=== PATIENT | female | born 1950 | race Caucasian/White ===

== ENCOUNTER → 2017-09-24 | Outpatient (CLI) | payer MEDICARE, OTHER ==
[~2017-09-24] MED LIST: ALPR0.254 PO
--- NOTE | 2017-09-24 13:34 | KCIC ---
Bilateral digital screening mammograms: Reason for examination: Routine screening. Comparison is made to previous studies dated 09/23/2016 and 09/11/2015. Interpretation was made with the benefit of CAD. The skin and nipples show no abnormalities. No abnormal axillary lymph nodes are seen. The breast parenchyma is heterogeneously dense. (Breast density: Category C) There are no dominant masses, suspicious calcifications or architectural distortion. A few benign calcifications are again seen. Impression: No evidence of malignancy. Recommend routine screening. Your patient's mammogram demonstrates that she has dense breast tissue (breast density category C or D), which could hide abnormalities, and if she has other risk factors for breast cancer that have been identified, she might benefit from supplemental screening tests that may be suggested by you as her ordering physician. Dense breast tissue, in and of itself, is a relatively common condition. Therefore, this information is not provided to cause undue concern, but rather to raise your awareness and to promote discussion with your patient regarding the presence of other risk factors, in addition to dense breast tissue. Your patient's mammography results will be sent to her. BI-RADS Category 2: Benign. "Our facility is accredited by the [employer] Mammography [employer]." This patient's information has been entered into a reminder system for the patient to be notified with the results of her examination and a target date for the next mammogram. Electronically signed by: Radha Uriarte MD (09/24/2017 1:30 PM) [facility]
== END | disposition home or self-care (01) ==
LOC: KCIC MAMMO 11:00
PROVIDERS: ATTEND Family Medicine
DX: Z12.31 Encounter for screening mammogram for malignant neoplasm of breast (principal)
CPT/HCPCS: G0202; 77067

== ENCOUNTER → 2017-09-24 | Outpatient (CLI) | payer MEDICARE, OTHER ==
--- NOTE | 2017-09-24 13:02 | KCIC ---
CT abdomen and pelvis with contrast History: Left lower quadrant pain for about one week Technique: After the administration of oral and intravenous contrast, CT imaging was performed of the abdomen and pelvis. Multiplanar images are reviewed. Exposure: One or more of the following individualized dose reduction techniques were utilized for this examination: 1. Automated exposure control 2. Adjustment of the mA and/or kV according to patient size 3. Use of iterative reconstruction technique. Comparison: October 25, 2014 Findings: As seen on axial images 63 through 67, there is more localized inflammatory change about the proximal sigmoid colon at which there is apparently diverticulum present. No abscess, free fluid, or free air is identified. Bowel is not significantly dilated. There is no significant abnormality of the visualized lung bases. There is no significant abnormality of the liver, spleen, pancreas, adrenal glands. Both kidneys enhance without hydronephrosis. Incidental note is made of retroaortic left renal vein.Gallbladder is present without obvious intraluminal abnormality by CT. Urinary bladder has a normal configuration. There are some scattered atherosclerotic calcification of the abdominal aorta and proximal right iliac artery. There is multilevel lumbar facet degenerative change greater inferiorly. There is grade 1 anterior spondylolisthesis L4-5, to lesser degree at L5-S1. There is multilevel lumbar degenerative disc disease. There is small umbilical fascial defect, no bowel. There has been hysterectomy. Impression: 1. There is more localized inflammatory change about the proximal sigmoid colon at which there is apparently diverticulum present, findings likely due to diverticulitis although colon screening is advised after resolution of acute symptoms if this has not been performed. Electronically signed by: Tony Malik MD (09/24/2017 12:59 PM) [facility]-KCIC1
== END | disposition home or self-care (01) ==
LOC: KCIC CT 11:50
PROVIDERS: ATTEND Family Medicine
DX: R10.32 Left lower quadrant pain (principal); M51.36 Other intervertebral disc degeneration, lumbar region; M43.16 Spondylolisthesis, lumbar region
CPT/HCPCS: 74176

== ENCOUNTER → 2018-02-02 | Outpatient (CLI) | payer MEDICARE, OTHER | END | disposition home or self-care (01) | LOC: KCIC MRI 14:24 | DX: S42.201A Unspecified fracture of upper end of right humerus, initial encounter for closed fracture (principal); S83.241A Other tear of medial meniscus, current injury, right knee, initial encounter; M17.11 Unilateral primary osteoarthritis, right knee; M22.41 Chondromalacia patellae, right knee; M25.461 Effusion, right knee; R60.0 Localized edema; X58.XXXA Exposure to other specified factors, initial encounter; Y93.89 Activity, other specified; Y92.89 Other specified places as the place of occurrence of the external cause; Y99.8 Other external cause status | CPT/HCPCS: 73218; 73721 ==

== ENCOUNTER → 2018-09-27 | Outpatient (CLI) | payer MEDICARE, OTHER ==
--- NOTE | 2018-09-27 14:41 | KCIC ---
Bilateral digital screening mammograms with 3-D tomosynthesis: Reason for examination: Routine screening. Comparison is made to previous studies dated 09/24/2017 and 09/23/2016. Bilateral mammograms in CC and oblique projections were obtained with 2-D imaging and 3-D tomosynthesis imaging on a Siemens Inspiration unit and reviewed on the workstation. Interpretation was made with the benefit of CAD. The skin and nipples show no abnormalities. No abnormal axillary lymph nodes are seen. The breast parenchyma is extremely dense. (Breast density: Category D.) There are no dominant masses, suspicious calcifications or architectural distortion. Impression: No evidence of malignancy. Recommend routine screening. Your patient's mammogram demonstrates that she has dense breast tissue (breast density category C or D), which could hide abnormalities, and if she has other risk factors for breast cancer that have been identified, she might benefit from supplemental screening tests that may be suggested by you as her ordering physician. Dense breast tissue, in and of itself, is a relatively common condition. Therefore, this information is not provided to cause undue concern, but rather to raise your awareness and to promote discussion with your patient regarding the presence of other risk factors, in addition to dense breast tissue. Your patient's mammography results will be sent to her. BI-RAD Category 1: Negative. "Our facility is accredited by the [employer] Mammography [employer]." This patient's information has been entered into a reminder system for the patient to be notified with the results of her examination and a target date for the next mammogram. Electronically signed by: Radha Uriarte MD (09/27/2018 2:38 PM) [facility]
== END | disposition home or self-care (01) ==
LOC: KCIC MAMMO 11:54
PROVIDERS: ATTEND Family Medicine
DX: Z12.31 Encounter for screening mammogram for malignant neoplasm of breast (principal)
CPT/HCPCS: 77063; 77067

== ENCOUNTER → 2019-09-28 | Outpatient (CLI) | payer MEDICARE, OTHER ==
--- NOTE | 2019-09-28 18:23 | KCIC ---
Bilateral digital screening mammograms with 3-D tomosynthesis: Reason for examination: Routine screening. Comparison is made to previous studies dated 09/27/2018 and 09/24/2017. Bilateral mammograms in CC and oblique projections were obtained with 2-D imaging and 3-D tomosynthesis imaging on a Siemens Inspiration unit and reviewed on the workstation. Interpretation was made with the benefit of CAD. The skin and nipples show no abnormalities. No abnormal axillary lymph nodes are seen. The breast parenchyma is extremely dense. (Breast density: Category D.) There appear to be several small circumscribed nodules bilaterally which probably represent cysts. Recommend further evaluation with ultrasound. There are no suspicious calcifications but there are a few benign-appearing calcifications present. Impression: Several small circumscribed nodules seen bilaterally. These likely represent cysts but recommend further evaluation with ultrasound. Your patient's mammogram demonstrates that she has dense breast tissue (breast density category C or D), which could hide abnormalities, and if she has other risk factors for breast cancer that have been identified, she might benefit from supplemental screening tests that may be suggested by you as her ordering physician. Dense breast tissue, in and of itself, is a relatively common condition. Therefore, this information is not provided to cause undue concern, but rather to raise your awareness and to promote discussion with your patient regarding the presence of other risk factors, in addition to dense breast tissue. Your patient's mammography results will be sent to her. BI-RAD Category 0: Incomplete. Needs additional imaging evaluation. "Our facility is accredited by the [employer] Mammography Program." This patient's information has been entered into a reminder system for the patient to be notified with the results of her examination and a target date for the next mammogram. Electronically signed by: Radha Uriarte MD (09/28/2019 6:20 PM) [facility]
== END | disposition home or self-care (01) ==
LOC: KCIC MAMMO 12:47
PROVIDERS: ATTEND Family Medicine
DX: Z12.31 Encounter for screening mammogram for malignant neoplasm of breast (principal); N63.10 Unspecified lump in the right breast, unspecified quadrant; N63.20 Unspecified lump in the left breast, unspecified quadrant
CPT/HCPCS: 77063; 77067

== ENCOUNTER → 2019-10-12 | Outpatient (CLI) | payer MEDICARE, OTHER ==
--- NOTE | 2019-10-12 16:34 | KCIC ---
Bilateral breast ultrasound: Reason for examination: Small nodules bilaterally on screening mammogram. Comparison is made to mammographic exam dated 09/28/2019. Bilateral whole breast ultrasound including evaluation of all 4 quadrants and the retroareolar and axillary regions of both breasts was performed. In the right breast, there is an 8.9 mm septated cystic lesion at the 12:00 position 5 cm from the nipple. There are small hypoechoic fibrocystic lesions in the retroareolar 12:00 position measuring up to 8.3 mm in size. There is a 7.8 mm hypoechoic fibrocystic lesion at the 2:00 position 5 cm from the nipple. There is a 1.1 cm hypoechoic fibrocystic lesion at the 9:00 position 7 cm from the nipple. There is a 1.8 cm septated cystic lesion in the 11:00 position 4 cm from the nipple. No suspicious lesions are seen. No abnormal appearing lymph nodes are seen in the right axilla. In the left breast, there is a small 5.9 mm hypoechoic fibrocystic type lesion at the 12:00 position 4 cm from the nipple. There is a 1.1 cm cystic-appearing lesion at the 2:00 position 6 cm from the nipple. There is a 6.1 mm hypoechoic fibrocystic type lesion at the 2:00 position 10 cm from the nipple. There is some cystic ductal ectasia in the retroareolar 3:00 position. No suspicious nodules are seen. No abnormal appearing lymph nodes are seen in the left axilla. IMPRESSION: Multiple benign-appearing cystic and fibrocystic lesions bilaterally. No suspicious abnormality seen. Recommend 6 month follow-up with ultrasound. BI-RADS Category 3: Probably Benign. "Our facility is accredited by the [employer] Mammography [employer]." This patient's information has been entered into a reminder system for the patient to be notified with the results of her examination and a target date for the next mammogram. Electronically signed by: Radha Uriarte MD (10/12/2019 4:31 PM) [facility]
== END | disposition home or self-care (01) ==
LOC: KCIC US 12:59
PROVIDERS: ATTEND Family Medicine
DX: N64.89 Other specified disorders of breast (principal)
CPT/HCPCS: 76641

== ENCOUNTER → 2021-03-01 | Outpatient (CLI) | payer MEDICARE, OTHER ==
--- NOTE | 2021-03-01 11:56 | RAD ---
EXAM: Dual modality PET-CT Scan DATE: 03/01/2021 RADIOPHARMACEUTICAL: 15 mCi F-18 fluorodeoxyglucose (FDG) IV. CLINICAL HISTORY: Osseous metastases. Unknown primary malignancy. COMPARISON: Abdomen and pelvis CT dated 09/24/2017. TECHNIQUE: Approximately 45 minutes after tracer administration, routine, attenuation-corrected Posit oumou Emission Tomography (PET) images were obtained from the level of the base of the skull through th e level of the mid thighs. Tomographic reconstructions are reviewed in coronal, transaxial and sagitt al planes. Non-contrast CT imaging was performed for attenuation correction and localization purpose s only. These images do not constitute a diagnostic-quality CT examination and were not used to diag nose disease independently of the PET images. The blood glucose level was 106 mg/dL at the time of FDG administration. *One or more of the following individualized dose reduction techniques were utilized for this examina tion: 1. Automated exposure control. 2. Adjustment of the mA and/or kV according to patient size. 3. Use of iterative reconstruction technique. FINDINGS: There is intense radiotracer activity associated with multiple lytic osseous metastases. Fo r reference purposes, there is radiotracer activity within SUV of 8.4 within a lytic lesion within th e right posterior aspect of T10. There is radiotracer activity within maximum SUV of 5.7 within a lyt ic lesion within the left posterior body and posterior elements of L4. There is increased radiotracer activity within maximum SUV of 4.2 within a lytic lesion within the left aspect of T4. There is incr eased radiotracer activity with a maximum SUV of 2.7 within a lytic lesion within the anterior right third rib. There is increased radiotracer activity within maximum SUV of 1.5 within the anterior left fifth rib. There are additional numerous lytic lesions throughout the axial and appendicular skeleto n with SUVs of less than 2.0. There is a spiculated mass within the posterior inferior medial left breast within maximum SUV of 2.4 . This is concerning for primary malignancy. No retained tracer avid left axillary lymph node is seen . Evaluation of the CT portion of the exam demonstrates no pulmonary infiltrate, pleural effusion or pn eumothorax. There is linear atelectasis or scarring within the lingula left lower lobe. Evaluated for small nodules is limited due to motion. The heart is normal in size. The aorta is normal in caliber. There are nonspecific mediastinal lymph nodes. There is a spiculated mass within the inferior medial aspect of the left breast measuring approximate ly 1.8 cm. No hepatic lesion is seen. The gallbladder, pancreas, spleen, adrenal glands and kidneys are unremark able. The appendix is unremarkable. There is no bowel obstruction or abnormal bowel wall thickening. The bladder is empty. The uterus is absent. No adnexal lesion is seen. There is no retroperitoneal or mesenteric lymphadenopathy. The visualized portions of the brain are unremarkable. No neck lymphadenopathy is seen. The airways m idline and mildly patent. There are degenerative changes throughout the spine and involving both shou lders and hips. There are multiple lytic lesions. The largest lesion is seen within the left posterio r aspect of the L4 vertebral body and L4 posterior elements. This extends beyond the cortex into the left lateral aspect of the central canal. There are additional lesions involving the right iliac bone and multiple additional vertebral bodies. No convincing acute pathologic fracture is seen. IMPRESSION: 1. 1.8 cm spiculated mass within the posterior inferior medial left breast demonstrating an SUV of 2. 4. The morphology of this lesion and degree of radiotracer activity are most concerning for primary b reast malignancy. Correlate with mammography and sonography findings. 2. Diffuse osseous metastatic disease. The largest lesion is a destructive lytic lesion within the po sterior aspect of L4. The maximum SUV associated with these osseous lesions ranges from 8.4 to less t carvajal 2.0. No pathologic fracture is seen. 3. No additional evidence of malignancy. Electronically signed by: Destiny Patiño MD (03/01/2021 11:53 AM) [id number]
== END ==
LOC: PETSC 09:53
PROVIDERS: ATTEND Internal Medicine Hematology & Oncology
DX: C41.9 Malignant neoplasm of bone and articular cartilage, unspecified (principal); N63.20 Unspecified lump in the left breast, unspecified quadrant
CPT/HCPCS: 78815; A9552

== ENCOUNTER 2021-04-09 08:23 | Outpatient (CLI) | payer MEDICARE, OTHER ==
[2021-04-09] VITALS (12 sets, daily range): BP systolic 112–177; BP diastolic 63–98
[~2021-04-09] VITALS: Ht 162.6 cm; Wt 109.0 kg
[~2021-04-09 08:23] MED LIST changes: +ALPR1TAB2 PO; +AMIT10TA PO; +ASCO100019 PO; +CBD oil; +CHOL100014 PO; +FLAX100017 PO; +MILK140C PO; +OMEP40CA7 PO; +POLY17PO29 PO; +UBID1CAP41 PO; +[UNRECOGNIZED DRUG - OTHER]; +[UNRECOGNIZED DRUG - OTHER]; +[UNRECOGNIZED DRUG - OTHER]; +tumeric
[2021-04-09] MEDS ORDERED: inhaler INH (09:15)
[2021-04-09] MEDS ORDERED: OMEP20CA16 PO (09:15)
[2021-04-09] MEDS ORDERED: LIDOCAINE WITH 8.4% SOD BICARB 3 ML DISP.SYRIN. ONE ×2 (09:16→09:53)
[2021-04-09 09:18] LABS: BASO # 0.1 x10^3/uL (0.0-0.2); BASO % 1 % (0-3); EOS # 0.1 x10^3/uL (0.0-0.7); EOS % 2 % (0-3); HEMATOCRIT 42.7 % (36.0-47.0); HEMOGLOBIN 14.3 g/dL (12.0-15.5); LYMPH # 2.1 x10^3/uL (1.0-4.8); LYMPH % 28 % (24-48); MEAN CORPUSCULAR HEMOGLOBIN 30 pg (25-35); MEAN CORPUSCULAR HGB CONC 33 g/dL (31-37); MEAN CORPUSCULAR VOLUME 91 fL (79-100); MONO # 0.8 x10^3/uL (0.0-1.1); MONO % 11 % (0-9); NEUT # 4.2 x10^3/uL (1.8-7.7); NEUT % 58 % (31-73); PLATELET COUNT 189 x10^3/uL (140-400); RED BLOOD COUNT 4.72 x10^6/uL (3.50-5.40); RED CELL DISTRIBUTION WIDTH 14.5 % (11.5-14.5); WHITE BLOOD COUNT 7.2 x10^3/uL (4.0-11.0)
[2021-04-09] MEDS ORDERED: MIDAZOLAM HCL/PF 5 MG/5 ML VIAL. ONE (09:25)
[2021-04-09] MEDS ORDERED: fentaNYL PF VIAL 100 MCG/2 ML VIAL ONE (09:26)
[2021-04-09 09:27] LABS: PROTHROMBIN TIME PATIENT 12.8 SEC (11.7-14.0)
[2021-04-09] MEDS ORDERED: MIDAZOLAM HCL/PF 5 MG/5 ML VIAL. IV ONE (10:00)
[2021-04-09] MEDS ORDERED: fentaNYL PF VIAL 100 MCG/2 ML VIAL IV ONE (10:00)
[2021-04-09] MEDS ORDERED: LIDOCAINE WITH 8.4% SOD BICARB 3 ML DISP.SYRIN. IJ ONE (10:00)
--- NOTE | 2021-04-09 11:30 | NUR ---
PIV removed, instructions provided on site care, sedation. Patient's daughter at bedside. No questions at time of d/c. Patient will follow-up w/ oncologist regarding results of biopsy. Daughter driving home. All belongings w/ patient at time of d/c.
--- NOTE | 2021-04-09 12:52 | PDOC ---
Exam Psychiatric Clinician Psychiatric Clinician Mary Jane Pre-Procedure Diagnosis Pre-Procedure Diagnosis Lytic mass L4 Post-Procedure Diagnosis Post-Procedure Diagnosis Same. Procedure Performed Procedure Performed L4 biopsy, left traspedicular Type of Anesthesia Type of Anesthesia Mod Sed Estimated Blood Loss EBL: 3 Specimens Specimans Core biopsy Drain/Tubes Drains/Tubes None Condition of Patient Condition of Patient Stable Disposition Disposition TO [facility] TANIA LESTER MD Apr 09, 2021 12:52
--- NOTE | 2021-04-09 14:11 | RAD ---
04/09/2021 PROCEDURE: CT-guided biopsy, lytic lesion in L4 pedicle and vertebral body Consent: The procedure was explained in its entirety to the patient or the patients designated repres entative by a member of the treatment team, including a discussion of the risks, benefits and commonl y accepted alternatives to the procedure, as well as the expected consequences of no therapy whatsoev er. Discussion of the risks included, but was not limited to, those that are most frequent and thos e that are rare but possibly severe or life-threatening, as well as the possibility of unforeseen com plications. Discussion: 1% lidocaine was administered for local anesthesia. Under intermittent CT guidance a 17 T he patient was placed in the prone position. A timeout procedure was performed. The patient was prepp ed and draped using sterile barrier technique. CT imaging demonstrates lytic lesion in the L4 vertebr al body and left pedicle. Under intermittent CT guidance the Onc Control Left advanced to the periphery of the lytic lesion. Core biopsy samples obtained. The needle was dorothea jesse. Manual pressure was held. Sterile dressings were applied. No immediate complications were identi fied. Sedation: The procedure was performed under conscious sedation including continuous cardiopulmonary m onitoring via a dedicated sedation nurse. Elrd-mt-bjjy sedation time: 26 minutes IMPRESSION: CT-guided biopsy, lytic lesion in L4 vertebra and left pedicle CT DOSING PQRS STATEMENT: One or more of the following individualized dose reduction techniques were utilized for this examinat ion: 1. Automated exposure control 2. Adjustment of the mA and/or kV according to patient size 3. Use of iterative reconstruction technique Electronically signed by: Isacc Hinton MD (04/09/2021 2:08 PM) [id number]
--- NOTE | 2021-04-11 14:09 | PATHOLOGY ---
[facility] Accession Number: [id number] . 01 Material submitted: . vertebral column - L4 BONE BIOPSY. Modifiers: L4 . 01 Clinical history: . ABNORMAL FINDINGS L4 HISTORY OF BREAST CANCER . 01 Frozen section diagnosis: . . /QTP . 02 Diagnosis: Bone and blood clot, L4 bone biopsy: - METASTATIC ADENOCARCINOMA, MODERATELY DIFFERENTIATED, HAVING IMMUNOPHENOTYPIC FEATURES COMPATIBLE WITH BREAST ORIGIN. SEE COMMENT. (JPM:leandro/pit; 04/10/2021) S 04/11/2021 0906 Local . 02 Comment: Sections of the L4 bone biopsy show extensive replacement of bone by a metastatic epithelial neoplasm. The tumor cells predominantly have a gland within gland cribriform arrangement. Tumor cells also focally have a small acinar arrangement. The tumor cells have modest amounts of pale eosinophilic cytoplasm, and possess enlarged, rounded to ovoid nuclei containing small nucleoli. A few mitotic figures are noted. A panel of immunoperoxidase stains is obtained on block A1 and yields the following results: . Cytokeratin 7: Tumor cells positive Cytokeratin 20: Tumor cells negative TTF-1: Tumor cells negative CDX2: Tumor cells negative ROSENDA-3: Tumor cells positive PAX-8: Tumor cells negative ER: Tumor cells positive . The morphologic and immunophenotypic findings are supportive of the diagnosis of metastatic moderately differentiated adenocarcinoma compatible with breast origin. The case is also examined by Dr. Solitario, who concurs with the diagnosis. The results are reported to Dr. Byrd on 04/11/2021 at 1205 PM. . (JPM:leandro/PIT; 04/10/2021) . Special stains performed: Immunoperoxidase stains all performed on A1 and include CK7, CK20, TTF-1, CDX2, ROSENDA-3, PAX-8, ER . 02 Electronically signed: . Miguel A Banks MD, Pathologist NPI- [id number] . 01 Gross description: . The specimen is received in formalin, labeled "Leeanna Mckoy, L4 bone biopsy" received as one bony muhammad tissue core measuring up to 1.3 x 0.2 cm. Following decalcification in immunocal, the specimen is entirely submitted in A1 with accompanying 1.2 cm aggregate of blood clot in A2. ([facility]; 04/09/2021) ONELIA/ONELIA 04/10/2021 1403 Local . 02 Pathologist provided ICD-10: C79.51 . 02 CPT . 523942, G78920, M50333, [id number] Specimen Comment: A courtesy copy of this report has been sent to [phone] Specimen Comment: [id number], Specimen Comment: Report sent to ,DR BYRD / DR PATINO Performed at: 01 [facility] [address], [place] [id number] MD Cesar Frank MD Phone: [phone] Performed at: 02 [facility] [address] [place] [address], [place] [id number] MD Miguel A Banks MD Phone: [phone]
== END 2021-04-09 11:25 | disposition home or self-care (01) ==
LOC: INTRAD 08:23
PROVIDERS: ATTEND Internal Medicine Hematology & Oncology
DX: C79.51 Secondary malignant neoplasm of bone (principal); R93.7 Abnormal findings on diagnostic imaging of other parts of musculoskeletal system; K21.9 Gastro-esophageal reflux disease without esophagitis; M19.90 Unspecified osteoarthritis, unspecified site; F41.9 Anxiety disorder, unspecified; F32.9 Major depressive disorder, single episode, unspecified; Z87.440 Personal history of urinary (tract) infections; Z85.3 Personal history of malignant neoplasm of breast; Z79.899 Other long term (current) drug therapy; Z87.891 Personal history of nicotine dependence; Z88.0 Allergy status to penicillin; Z88.1 Allergy status to other antibiotic agents; Z88.2 Allergy status to sulfonamides; Z91.040 Latex allergy status; Z88.8 Allergy status to other drugs, medicaments and biological substances; Z72.89 Other problems related to lifestyle
CPT/HCPCS: 20225; 36415; 77012; 85025; 85610; 88307; 88311; 88341; 88342; 88361; 99152; 99153; J2250; J3010; J3490

== ENCOUNTER → 2021-04-17 | Outpatient (CLI) | payer MEDICARE, OTHER ==
[2021-04-09 11:05] VITALS: BP 112/72
[~2021-04-17] MED LIST changes: +OMEP20CA16 PO; +inhaler INH
[2021-04-17 12:01] LABS: BASO % 1 % (0-3); EOS # 0.1 x10^3/uL (0.0-0.7); EOS % 1 % (0-3); HEMATOCRIT 38.2 % (36.0-47.0); HEMOGLOBIN 13.3 g/dL (12.0-15.5); LYMPH # 1.6 x10^3/uL (1.0-4.8); LYMPH % 29 % (24-48); MEAN CORPUSCULAR HEMOGLOBIN 31 pg (25-35); MEAN CORPUSCULAR HGB CONC 35 g/dL (31-37); MEAN CORPUSCULAR VOLUME 89 fL (79-100); MONO # 0.5 x10^3/uL (0.0-1.1); MONO % 10 % (0-9); NEUT # 3.2 x10^3/uL (1.8-7.7); NEUT % 59 % (31-73); PLATELET COUNT 235 x10^3/uL (140-400); RED CELL DISTRIBUTION WIDTH 14.2 % (11.5-14.5); WHITE BLOOD COUNT 5.4 x10^3/uL (4.0-11.0)
[2021-04-17 12:12] LABS: CALCIUM 8.8 mg/dL (8.5-10.1); CREATININE 0.8 mg/dL (0.6-1.0); GFR 71.1; POTASSIUM 4.1 mmol/L (3.5-5.1)
[2021-04-17 12:18] LABS: ALBUMIN 3.6 g/dL (3.4-5.0); ALBUMIN/GLOBULIN RATIO 1.1 (1.0-1.7); TOTAL BILIRUBIN 0.6 mg/dL (0.2-1.0); TOTAL PROTEIN 6.8 g/dL (6.4-8.2)
== END ==
LOC: ONCLAB 11:22
PROVIDERS: ATTEND Internal Medicine Hematology & Oncology
DX: C50.312 Malignant neoplasm of lower-inner quadrant of left female breast (principal)
CPT/HCPCS: 36415; 80053; 85025

== ENCOUNTER → 2021-04-25 | Outpatient (CLI) | payer MEDICARE, OTHER ==
[2021-04-09 11:05] VITALS: BP 112/72
--- NOTE | 2021-04-26 09:40 | RAD ---
XR THORACIC SPINE 3VIEWS, XR LUMBAR SPINE 2-3V History: Reason: Acute low back pain / Spl. Instructions: / History: Technique: 3 views thoracic spine and 3 views lumbar spine. Comparison: PET CT March 01, 2021 Findings: Thoracic spine: Normal vertebral body height and alignment. Known thoracic lesions are not well radha cterized on radiographs. No acute fracture. Mild multilevel thoracic degenerative disc changes. Lumbar spine: Grade 1 anterolisthesis L4 on L5, unchanged. Slight grade 1 anterolisthesis L5 on S1, u nchanged. Mild retrolisthesis L3 on L4, unchanged. L4 lytic lesion measures 2.8 x 2.6 cm within the v ertebral body posteriorly, unchanged. Normal vertebral body height. No fracture. Moderate degenerativ e disc changes most prominent L5-S1. Prominent lower lumbar facet arthropathy. Impression: 1. No acute osseous abnormality. 2. L4 vertebral body metastasis, similar compared to prior. Known thoracic metastasis is not well ch aracterized on radiographs. 3. Moderate multilevel lumbar spondylosis. Electronically signed by: Bolivar Baca DO (04/26/2021 9:38 AM) [id number]
== END ==
LOC: RAD 16:21
PROVIDERS: ATTEND Physician Assistant
DX: C79.51 Secondary malignant neoplasm of bone (principal); M47.817 Spondylosis without myelopathy or radiculopathy, lumbosacral region; M43.17 Spondylolisthesis, lumbosacral region; M47.814 Spondylosis without myelopathy or radiculopathy, thoracic region
CPT/HCPCS: 72072; 72100

== ENCOUNTER → 2021-05-06 | Outpatient (CLI) | payer MEDICARE, OTHER ==
[2021-04-09 11:05] VITALS: BP 112/72
[2021-05-06 14:05] LABS: BASO % 1 % (0-3); EOS % 1 % (0-3); HEMATOCRIT 38.3 % (36.0-47.0); LYMPH # 0.9 x10^3/uL (1.0-4.8); LYMPH % 17 % (24-48); MEAN CORPUSCULAR HEMOGLOBIN 30 pg (25-35); MEAN CORPUSCULAR HGB CONC 34 g/dL (31-37); MEAN CORPUSCULAR VOLUME 90 fL (79-100); MONO # 0.3 x10^3/uL (0.0-1.1); MONO % 6 % (0-9); NEUT # 4.1 x10^3/uL (1.8-7.7); NEUT % 77 % (31-73); PLATELET COUNT 228 x10^3/uL (140-400); RED BLOOD COUNT 4.28 x10^6/uL (3.50-5.40); RED CELL DISTRIBUTION WIDTH 13.7 % (11.5-14.5); WHITE BLOOD COUNT 5.3 x10^3/uL (4.0-11.0)
[2021-05-06 14:07] LABS: BILIRUBIN,URINE NEGATIVE (NEG); CLARITY,URINE CLOUDY; COLOR,URINE YELLOW; NITRITE,URINE NEGATIVE (NEG); PROTEIN,URINE NEGATIVE (NEG-TRACE); UROBILINOGEN,URINE 0.2 mg/dL (0.2 mg/dL)
[2021-05-06 14:12] LABS: BACTERIA,URINE MODERATE /HPF (0-FEW); RBC,URINE >40 /HPF (0-2); WBC,URINE >40 /HPF (0-4)
[2021-05-06 14:18] LABS: CALCIUM 8.4 mg/dL (8.5-10.1); CREATININE 0.9 mg/dL (0.6-1.0); GFR 62.1; POTASSIUM 4.8 mmol/L (3.5-5.1)
[2021-05-06 14:24] LABS: ALBUMIN 3.5 g/dL (3.4-5.0); ALBUMIN/GLOBULIN RATIO 1.1 (1.0-1.7); TOTAL BILIRUBIN 0.5 mg/dL (0.2-1.0); TOTAL PROTEIN 6.8 g/dL (6.4-8.2)
== END ==
LOC: ONCLAB 13:36
PROVIDERS: ATTEND Physician Assistant
DX: C50.312 Malignant neoplasm of lower-inner quadrant of left female breast (principal)
CPT/HCPCS: 36415; 80053; 81001; 85025; 87086

== ENCOUNTER → 2021-05-06 | Outpatient (CLI) | payer MEDICARE, OTHER ==
[2021-04-09 11:05] VITALS: BP 112/72
== END ==
LOC: SPEC 13:39
PROVIDERS: ATTEND Internal Medicine Cardiovascular Disease
DX: I49.9 Cardiac arrhythmia, unspecified (principal)
CPT/HCPCS: 36415; 83735; 84443

== ENCOUNTER → 2021-05-08 | Outpatient (CLI) | payer MEDICARE, OTHER ==
[2021-04-09 11:05] VITALS: BP 112/72
--- NOTE | 2021-05-08 20:09 | CARD ---
MR#: [id number] Date of Study: 05/08/2021 Ordering Physician: PAUL JUAN, Referring Physician: PAUL JUAN Tech: Lorene Friend [facility] APPROVED REPORT EXAM: Two-dimensional and M-mode echocardiogram with Doppler and color Doppler. Other Information Quality : AverageHR: 65bpm Rhythm : NSR INDICATION Arrhythmia RISK FACTORS Obesity 2D DIMENSIONS RVDd3.4 (2.9-3.5cm)Left Atrium(2D)3.7 (1.6-4.0cm) IVSd0.8 (0.7-1.1cm)Aortic Root(2D)2.7 (2.0-3.7cm) LVDd5.2 (3.9-5.9cm)LVOT Diameter2.0 (1.8-2.4cm) PWd0.8 (0.7-1.1cm)LVDs2.7 (2.5-4.0cm) FS (%) 48.3 %SV101.0 ml LVEF(%)79.4 (>50%) Aortic Valve AoV Peak Bryan.143.7cm/sAoV VTI35.8cm AO Peak GR.8.3mmHgLVOT Peak Bryan.108.6cm/s AO Mean GR.3mmHgAVA (VMAX)2.42cm2 Mitral Valve MV E Soqbreiz92.3cm/sMV DECEL NYCC832qw MV A Nrohqlot03.2cm/sE/A Ratio1.1 Pulmonary Valve PV Peak Lgsgwoum45.4cm/s Tricuspid Valve TR P. Spborjlv908qs/sTR Peak Gr.26mmHg LEFT VENTRICLE The left ventricle is normal size. There is normal left ventricular wall thickness. The left ventricu lar systolic function is normal. Estimated ejection fraction 60-65% There is normal LV segmental wal l motion. The left ventricular diastolic function and filling is normal for age. RIGHT VENTRICLE The right ventricle is normal size. There is normal right ventricular wall thickness. The right ventr icular systolic function is normal. ATRIA The left atrium size is normal. The right atrium size is normal. The interatrial septum is intact wit h no evidence for an atrial septal defect or patent foramen ovale as noted on 2-D or Doppler imaging. AORTIC VALVE The aortic valve is normal in structure and function. Doppler and Color Flow revealed no significant aortic regurgitation. There is no significant aortic valvular stenosis. MITRAL VALVE The mitral valve is thickened but opens well. There is no evidence of mitral valve prolapse. There is no mitral valve stenosis. Doppler and Color Flow revealed no mitral valve regurgitation noted. TRICUSPID VALVE The tricuspid valve is normal in structure and function. Doppler and Color Flow revealed no tricuspid valve regurgitation noted. There is no tricuspid valve stenosis. PULMONIC VALVE The pulmonary valve is normal in structure and function. Doppler and Color Flow revealed no pulmonic valvular regurgitation. GREAT VESSELS The aortic root is normal in size. The ascending aorta is normal in size. The IVC is normal in size a nd collapses >50% with inspiration. PERICARDIAL EFFUSION There is no evidence of significant pericardial effusion. Critical Notification Critical Value: No <Conclusion> The left ventricular systolic function is normal. Estimated ejection fraction 60-65% There is normal LV segmental wall motion. There is no evidence of significant pericardial effusion. Signed by : Paul Juan, Electronically Approved : 05/08/2021 20:09:14
== END ==
LOC: ECHO 13:31
PROVIDERS: ATTEND Internal Medicine Cardiovascular Disease
DX: I49.9 Cardiac arrhythmia, unspecified (principal)
CPT/HCPCS: 93306

== ENCOUNTER → 2021-05-23 | Outpatient (CLI) | payer MEDICARE, OTHER ==
[2021-04-09 11:05] VITALS: BP 112/72
[2021-05-23 11:37] LABS: BASO % 1 % (0-3); EOS # 0.1 x10^3/uL (0.0-0.7); EOS % 2 % (0-3); HEMOGLOBIN 12.3 g/dL (12.0-15.5); LYMPH # 0.9 x10^3/uL (1.0-4.8); LYMPH % 42 % (24-48); MEAN CORPUSCULAR HEMOGLOBIN 31 pg (25-35); MEAN CORPUSCULAR HGB CONC 34 g/dL (31-37); MEAN CORPUSCULAR VOLUME 92 fL (79-100); MONO # 0.3 x10^3/uL (0.0-1.1); MONO % 13 % (0-9); NEUT # 0.9 x10^3/uL (1.8-7.7); NEUT % 42 % (31-73); PLATELET COUNT 236 x10^3/uL (140-400); RED BLOOD COUNT 3.92 x10^6/uL (3.50-5.40); RED CELL DISTRIBUTION WIDTH 14.8 % (11.5-14.5); WHITE BLOOD COUNT 2.2 x10^3/uL (4.0-11.0)
[2021-05-23 11:45] LABS: CALCIUM 8.8 mg/dL (8.5-10.1); CREATININE 0.8 mg/dL (0.6-1.0); GFR 70.9; POTASSIUM 4.5 mmol/L (3.5-5.1)
[2021-05-23 11:52] LABS: ALBUMIN 3.4 g/dL (3.4-5.0); TOTAL BILIRUBIN 0.4 mg/dL (0.2-1.0); TOTAL PROTEIN 6.7 g/dL (6.4-8.2)
[2021-05-23 12:12] LABS: % BANDS 1 % (0-9); % BASOS 1 % (0-3); % EOS 1 % (0-5); % LYMPHS 53 % (24-48); % MONOS 3 % (0-10); % SEGS 41 % (35-66); PLT ESTIMATE ADEQUATE (ADEQUATE)
== END ==
LOC: ONCLAB 10:58
PROVIDERS: ATTEND Physician Assistant
DX: C50.312 Malignant neoplasm of lower-inner quadrant of left female breast (principal)
CPT/HCPCS: 36415; 80053; 85007; 85025

== ENCOUNTER → 2021-05-29 | Outpatient (CLI) | payer MEDICARE, OTHER ==
[2021-04-09 11:05] VITALS: BP 112/72
[2021-05-29 11:34] LABS: BASO % 1 % (0-3); EOS % 1 % (0-3); HEMATOCRIT 36.8 % (36.0-47.0); HEMOGLOBIN 12.5 g/dL (12.0-15.5); LYMPH # 1.1 x10^3/uL (1.0-4.8); LYMPH % 42 % (24-48); MEAN CORPUSCULAR HEMOGLOBIN 31 pg (25-35); MEAN CORPUSCULAR HGB CONC 34 g/dL (31-37); MEAN CORPUSCULAR VOLUME 92 fL (79-100); MONO # 0.5 x10^3/uL (0.0-1.1); MONO % 18 % (0-9); NEUT # 0.9 x10^3/uL (1.8-7.7); NEUT % 37 % (31-73); PLATELET COUNT 278 x10^3/uL (140-400); RED BLOOD COUNT 3.98 x10^6/uL (3.50-5.40); RED CELL DISTRIBUTION WIDTH 17.1 % (11.5-14.5)
[2021-05-29 11:45] LABS: CALCIUM 8.5 mg/dL (8.5-10.1); CREATININE 0.7 mg/dL (0.6-1.0); GFR 82.7
[2021-05-29 11:52] LABS: ALBUMIN 3.3 g/dL (3.4-5.0); TOTAL BILIRUBIN 0.4 mg/dL (0.2-1.0); TOTAL PROTEIN 6.5 g/dL (6.4-8.2)
[2021-05-29 13:40] LABS: WHITE BLOOD COUNT 2.5 x10^3/uL (4.0-11.0)
== END ==
LOC: ONCLAB 09:26
PROVIDERS: ATTEND Internal Medicine Hematology & Oncology
DX: C50.312 Malignant neoplasm of lower-inner quadrant of left female breast (principal)
CPT/HCPCS: 36415; 80053; 85025

== ENCOUNTER → 2021-06-05 | Outpatient (CLI) | payer MEDICARE, OTHER ==
[2021-04-09 11:05] VITALS: BP 112/72
[2021-06-05 15:44] LABS: BASO % 1 % (0-3); EOS % 1 % (0-3); HEMATOCRIT 36.6 % (36.0-47.0); HEMOGLOBIN 12.5 g/dL (12.0-15.5); LYMPH # 1.5 x10^3/uL (1.0-4.8); LYMPH % 30 % (24-48); MEAN CORPUSCULAR HEMOGLOBIN 32 pg (25-35); MEAN CORPUSCULAR HGB CONC 34 g/dL (31-37); MEAN CORPUSCULAR VOLUME 92 fL (79-100); MONO # 0.9 x10^3/uL (0.0-1.1); MONO % 18 % (0-9); NEUT # 2.5 x10^3/uL (1.8-7.7); NEUT % 51 % (31-73); PLATELET COUNT 203 x10^3/uL (140-400); RED BLOOD COUNT 3.97 x10^6/uL (3.50-5.40); RED CELL DISTRIBUTION WIDTH 17.3 % (11.5-14.5); WHITE BLOOD COUNT 4.9 x10^3/uL (4.0-11.0)
[2021-06-05 15:56] LABS: CALCIUM 8.6 mg/dL (8.5-10.1); CREATININE 0.7 mg/dL (0.6-1.0); GFR 82.7; POTASSIUM 4.5 mmol/L (3.5-5.1)
[2021-06-05 16:02] LABS: ALBUMIN 3.6 g/dL (3.4-5.0); ALBUMIN/GLOBULIN RATIO 1.1 (1.0-1.7); TOTAL BILIRUBIN 0.4 mg/dL (0.2-1.0); TOTAL PROTEIN 6.9 g/dL (6.4-8.2)
[2021-06-05 16:49] LABS: % BANDS 10 % (0-9); % BASOS 1 % (0-3); % LYMPHS 31 % (24-48); % MONOS 12 % (0-10); % SEGS 46 % (35-66); ANISOCYTOSIS SLIGHT; NUCLEATED RBC 2; PLT ESTIMATE ADEQUATE (ADEQUATE); POLYCHROMASIA SLIGHT
== END ==
LOC: ONCLAB 14:21
PROVIDERS: ATTEND Physician Assistant
DX: C50.312 Malignant neoplasm of lower-inner quadrant of left female breast (principal)
CPT/HCPCS: 36415; 80053; 85007; 85025; 86300

== ENCOUNTER → 2021-06-19 | Outpatient (CLI) | payer MEDICARE, OTHER ==
[2021-04-09 11:05] VITALS: BP 112/72
[2021-06-19 13:56] LABS: BASO % 1 % (0-3); EOS % 2 % (0-3); HEMATOCRIT 34.8 % (36.0-47.0); LYMPH # 0.7 x10^3/uL (1.0-4.8); LYMPH % 28 % (24-48); MEAN CORPUSCULAR HEMOGLOBIN 32 pg (25-35); MEAN CORPUSCULAR HGB CONC 35 g/dL (31-37); MEAN CORPUSCULAR VOLUME 93 fL (79-100); MONO # 0.2 x10^3/uL (0.0-1.1); MONO % 7 % (0-9); NEUT # 1.5 x10^3/uL (1.8-7.7); NEUT % 63 % (31-73); PLATELET COUNT 275 x10^3/uL (140-400); RED BLOOD COUNT 3.74 x10^6/uL (3.50-5.40); RED CELL DISTRIBUTION WIDTH 17.6 % (11.5-14.5); WHITE BLOOD COUNT 2.3 x10^3/uL (4.0-11.0)
[2021-06-19 14:00] LABS: CALCIUM 8.8 mg/dL (8.5-10.1); CREATININE 1.1 mg/dL (0.6-1.0); GFR 49.1; POTASSIUM 5.4 mmol/L (3.5-5.1)
[2021-06-19 14:06] LABS: ALBUMIN 3.6 g/dL (3.4-5.0); ALBUMIN/GLOBULIN RATIO 1.2 (1.0-1.7); TOTAL BILIRUBIN 0.4 mg/dL (0.2-1.0); TOTAL PROTEIN 6.5 g/dL (6.4-8.2)
== END ==
LOC: ONCLAB 13:22
PROVIDERS: ATTEND Internal Medicine Hematology & Oncology
DX: C50.312 Malignant neoplasm of lower-inner quadrant of left female breast (principal)
CPT/HCPCS: 36415; 80053; 85025

== ENCOUNTER → 2021-06-28 | Outpatient (CLI) | payer MEDICARE, OTHER ==
[2021-04-09 11:05] VITALS: BP 112/72
--- NOTE | 2021-06-28 11:39 | RAD ---
Exam description: NM PET/CT SKULL BASE TO MID THIGH Date of service: 06/28/2021 8:40 AM Clinical history: 71 years-old Female with Reason: / Spl. Instructions: / History: . Comparison: Nuclear medicine PET scan from 03/01/2021 Technique: The patient has a measured blood glucose level of 107 mg/dL at the time of radiopharmacuet ical injection. The patient was injected with 14.1 mCi of 18F-FDg intravenously and remained in a geovani et dimly lit room for approximately 60 minutes for the uptake phase of the examination. The patient w as then placed in the PET/CT scanner and images were obtained from the top of the skull through the u pper thighs. CT images were used primarily for attenuation correction and localization. The attenuate d corrected and non corrected PET, CT, and fused PET/CT images were reviewed at the [facility] workstation. Findings: HEAD/NECK: Normal symmetric physiologic activity is identified within the extraocular muscles and bra in. No abnormal radiotracer activity is identified within the head and neck. No abnormally enlarged l ymph nodes are evident. CHEST: Previously seen spiculated nodule in the left breast is no longer visualized. A biopsy clip is seen in the area of previously seen hypermetabolic nodule. No abnormal or hypermetabolic mediastinal or hilar adenopathy is seen. There are no discrete pulmonary nodules. ABDOMEN/PELVIS: There is normal metabolic activity within the liver, spleen, kidneys, collecting syst em, and bowel. No abnormal lymphadenopathy or hypermetabolic activity is identified. SKELETAL STRUCTURES: Multiple hypermetabolic bony abnormalities are seen which appear improved since prior study for example the several hypermetabolic lesions involving T9, T10, L4 and L5 are seen SUV max ranging between 3.8 and 6.1. Area of hypermetabolic activity to the right anterior third rib teri ins stable, demonstrates SUV max of up to 2.8. There is a linear area of metabolic activity adjacent to the right scapula SUV max up to 6.1. No corresponding bony lytic abnormality is seen at this could be related to misregistration artifact. There is also a small area of increased metabolic activity i n the right ilium adjacent to the SI joint, SUV max up to 4.6 Impression: Previously seen hypermetabolic nodule in the inferior medial left breast is not clearly seen, instead a biopsy clip is identified in the location. No axillary or mediastinal adenopathy seen. Stable to slightly decreased hypermetabolic bony lesions involving the thoracolumbar spine and right ilium. Overall positive therapeutic response. PQRS Compliance Statement: One or more of the following individualized dose reduction techniques were utilized for this examinat ion: 1. Automated exposure control 2. Adjustment of the mA and/or kV according to patient size 3. Use of iterative reconstruction technique Electronically signed by: Linda Griffiths MD (06/28/2021 11:36 AM) [id number]
== END ==
LOC: PETSC 09:02
PROVIDERS: ATTEND Physician Assistant
DX: C50.312 Malignant neoplasm of lower-inner quadrant of left female breast (principal); N63.20 Unspecified lump in the left breast, unspecified quadrant
CPT/HCPCS: 78815; A9552

== ENCOUNTER → 2021-07-03 | Outpatient (CLI) | payer MEDICARE, OTHER ==
[2021-04-09 11:05] VITALS: BP 112/72
[2021-07-03 12:45] LABS: BASO % 1 % (0-3); EOS % 1 % (0-3); HEMATOCRIT 34.8 % (36.0-47.0); LYMPH % 39 % (24-48); MEAN CORPUSCULAR HEMOGLOBIN 33 pg (25-35); MEAN CORPUSCULAR HGB CONC 35 g/dL (31-37); MEAN CORPUSCULAR VOLUME 95 fL (79-100); MONO # 0.5 x10^3/uL (0.0-1.1); MONO % 19 % (0-9); NEUT % 40 % (31-73); PLATELET COUNT 215 x10^3/uL (140-400); RED BLOOD COUNT 3.65 x10^6/uL (3.50-5.40); RED CELL DISTRIBUTION WIDTH 18.5 % (11.5-14.5); WHITE BLOOD COUNT 2.4 x10^3/uL (4.0-11.0)
[2021-07-03 12:51] LABS: CALCIUM 8.8 mg/dL (8.5-10.1); CREATININE 0.8 mg/dL (0.6-1.0); GFR 70.9; POTASSIUM 4.6 mmol/L (3.5-5.1)
[2021-07-03 12:57] LABS: ALBUMIN 3.5 g/dL (3.4-5.0); ALBUMIN/GLOBULIN RATIO 1.1 (1.0-1.7); TOTAL BILIRUBIN 0.4 mg/dL (0.2-1.0); TOTAL PROTEIN 6.7 g/dL (6.4-8.2)
[2021-07-03 13:11] LABS: % BASOS 1 % (0-3); % EOS 2 % (0-5); % LYMPHS 44 % (24-48); % MONOS 9 % (0-10); % SEGS 44 % (35-66)
[2021-07-03 13:12] LABS: PLT ESTIMATE ADEQUATE (ADEQUATE)
== END ==
LOC: ONCLAB 12:24
PROVIDERS: ATTEND Internal Medicine Hematology & Oncology
DX: C50.312 Malignant neoplasm of lower-inner quadrant of left female breast (principal)
CPT/HCPCS: 36415; 80053; 85007; 85025

== ENCOUNTER → 2021-07-10 | Outpatient (CLI) | payer MEDICARE, OTHER ==
[2021-04-09 11:05] VITALS: BP 112/72
[2021-07-10 12:20] LABS: BASO % 1 % (0-3); EOS % 1 % (0-3); HEMATOCRIT 37.3 % (36.0-47.0); HEMOGLOBIN 12.8 g/dL (12.0-15.5); LYMPH # 1.1 x10^3/uL (1.0-4.8); LYMPH % 37 % (24-48); MEAN CORPUSCULAR HEMOGLOBIN 33 pg (25-35); MEAN CORPUSCULAR HGB CONC 34 g/dL (31-37); MEAN CORPUSCULAR VOLUME 96 fL (79-100); MONO # 0.4 x10^3/uL (0.0-1.1); MONO % 15 % (0-9); NEUT # 1.3 x10^3/uL (1.8-7.7); NEUT % 47 % (31-73); PLATELET COUNT 268 x10^3/uL (140-400); RED BLOOD COUNT 3.87 x10^6/uL (3.50-5.40); RED CELL DISTRIBUTION WIDTH 18.2 % (11.5-14.5); WHITE BLOOD COUNT 2.9 x10^3/uL (4.0-11.0)
[2021-07-10 12:33] LABS: CALCIUM 8.6 mg/dL (8.5-10.1); CREATININE 0.9 mg/dL (0.6-1.0); GFR 61.9; POTASSIUM 4.4 mmol/L (3.5-5.1)
[2021-07-10 12:40] LABS: ALBUMIN 3.6 g/dL (3.4-5.0); ALBUMIN/GLOBULIN RATIO 1.1 (1.0-1.7); TOTAL BILIRUBIN 0.5 mg/dL (0.2-1.0); TOTAL PROTEIN 6.8 g/dL (6.4-8.2)
== END ==
LOC: ONCLAB 11:56
PROVIDERS: ATTEND Physician Assistant
DX: C50.312 Malignant neoplasm of lower-inner quadrant of left female breast (principal)
CPT/HCPCS: 36415; 80053; 85025

== ENCOUNTER → 2021-07-24 | Outpatient (CLI) | payer MEDICARE, OTHER ==
[2021-04-09 11:05] VITALS: BP 112/72
[2021-07-24 13:17] LABS: BASO % 1 % (0-3); EOS % 1 % (0-3); HEMATOCRIT 34.5 % (36.0-47.0); LYMPH # 0.7 x10^3/uL (1.0-4.8); LYMPH % 25 % (24-48); MEAN CORPUSCULAR HEMOGLOBIN 34 pg (25-35); MEAN CORPUSCULAR HGB CONC 35 g/dL (31-37); MEAN CORPUSCULAR VOLUME 97 fL (79-100); MONO # 0.2 x10^3/uL (0.0-1.1); MONO % 8 % (0-9); NEUT # 1.9 x10^3/uL (1.8-7.7); NEUT % 65 % (31-73); PLATELET COUNT 224 x10^3/uL (140-400); RED BLOOD COUNT 3.55 x10^6/uL (3.50-5.40); RED CELL DISTRIBUTION WIDTH 16.8 % (11.5-14.5)
[2021-07-24 13:31] LABS: CALCIUM 8.5 mg/dL (8.5-10.1); CREATININE 0.8 mg/dL (0.6-1.0); GFR 70.9; POTASSIUM 4.4 mmol/L (3.5-5.1)
[2021-07-24 13:38] LABS: ALBUMIN 3.6 g/dL (3.4-5.0); ALBUMIN/GLOBULIN RATIO 1.1 (1.0-1.7); TOTAL BILIRUBIN 0.5 mg/dL (0.2-1.0)
== END ==
LOC: ONCLAB 12:50
PROVIDERS: ATTEND Physician Assistant
DX: C50.312 Malignant neoplasm of lower-inner quadrant of left female breast (principal); E55.9 Vitamin D deficiency, unspecified
CPT/HCPCS: 36415; 80053; 82306; 85025; 86300

== ENCOUNTER → 2021-08-07 | Outpatient (CLI) | payer MEDICARE, OTHER ==
[2021-04-09 11:05] VITALS: BP 112/72
[2021-08-07 12:33] LABS: BASO % 1 % (0-3); EOS % 1 % (0-3); HEMATOCRIT 37.3 % (36.0-47.0); LYMPH % 37 % (24-48); MEAN CORPUSCULAR HEMOGLOBIN 34 pg (25-35); MEAN CORPUSCULAR HGB CONC 35 g/dL (31-37); MEAN CORPUSCULAR VOLUME 98 fL (79-100); MONO # 0.4 x10^3/uL (0.0-1.1); MONO % 16 % (0-9); NEUT # 1.2 x10^3/uL (1.8-7.7); NEUT % 46 % (31-73); PLATELET COUNT 259 x10^3/uL (140-400); RED BLOOD COUNT 3.81 x10^6/uL (3.50-5.40); RED CELL DISTRIBUTION WIDTH 15.9 % (11.5-14.5); WHITE BLOOD COUNT 2.6 x10^3/uL (4.0-11.0)
[2021-08-07 12:43] LABS: CALCIUM 8.1 mg/dL (8.5-10.1); CREATININE 0.7 mg/dL (0.6-1.0); GFR 82.7
[2021-08-07 12:49] LABS: ALBUMIN 3.5 g/dL (3.4-5.0); TOTAL BILIRUBIN 0.4 mg/dL (0.2-1.0); TOTAL PROTEIN 6.9 g/dL (6.4-8.2)
== END ==
LOC: ONCLAB 11:51
PROVIDERS: ATTEND Internal Medicine Hematology & Oncology
DX: C50.312 Malignant neoplasm of lower-inner quadrant of left female breast (principal)
CPT/HCPCS: 36415; 80053; 85025

== ENCOUNTER → 2021-08-13 | Outpatient (CLI) | payer MEDICARE, OTHER ==
[2021-04-09 11:05] VITALS: BP 112/72
[2021-08-13 13:20] LABS: BASO % 1 % (0-3); EOS % 1 % (0-3); HEMATOCRIT 37.5 % (36.0-47.0); HEMOGLOBIN 12.9 g/dL (12.0-15.5); LYMPH # 1.3 x10^3/uL (1.0-4.8); LYMPH % 26 % (24-48); MEAN CORPUSCULAR HEMOGLOBIN 34 pg (25-35); MEAN CORPUSCULAR HGB CONC 35 g/dL (31-37); MEAN CORPUSCULAR VOLUME 98 fL (79-100); MONO # 0.8 x10^3/uL (0.0-1.1); MONO % 15 % (0-9); NEUT # 3.1 x10^3/uL (1.8-7.7); NEUT % 58 % (31-73); PLATELET COUNT 222 x10^3/uL (140-400); RED BLOOD COUNT 3.84 x10^6/uL (3.50-5.40); RED CELL DISTRIBUTION WIDTH 15.6 % (11.5-14.5); WHITE BLOOD COUNT 5.3 x10^3/uL (4.0-11.0)
[2021-08-13 13:37] LABS: CALCIUM 8.4 mg/dL (8.5-10.1); CREATININE 0.7 mg/dL (0.6-1.0); GFR 82.7; POTASSIUM 4.8 mmol/L (3.5-5.1)
[2021-08-13 13:43] LABS: ALBUMIN 3.6 g/dL (3.4-5.0); TOTAL BILIRUBIN 0.3 mg/dL (0.2-1.0); TOTAL PROTEIN 7.1 g/dL (6.4-8.2)
== END ==
LOC: ONCLAB 13:03
PROVIDERS: ATTEND Internal Medicine Hematology & Oncology
DX: C50.312 Malignant neoplasm of lower-inner quadrant of left female breast (principal)
CPT/HCPCS: 36415; 80053; 85025

== ENCOUNTER → 2021-09-10 | Outpatient (CLI) | payer MEDICARE, OTHER ==
[2021-04-09 11:05] VITALS: BP 112/72
[2021-09-10 12:46] LABS: BASO % 1 % (0-3); EOS % 1 % (0-3); HEMOGLOBIN 13.5 g/dL (12.0-15.5); LYMPH # 1.4 x10^3/uL (1.0-4.8); LYMPH % 41 % (24-48); MEAN CORPUSCULAR HEMOGLOBIN 33 pg (25-35); MEAN CORPUSCULAR HGB CONC 34 g/dL (31-37); MEAN CORPUSCULAR VOLUME 98 fL (79-100); MONO # 0.5 x10^3/uL (0.0-1.1); MONO % 14 % (0-9); NEUT # 1.5 x10^3/uL (1.8-7.7); NEUT % 44 % (31-73); PLATELET COUNT 221 x10^3/uL (140-400); RED CELL DISTRIBUTION WIDTH 14.5 % (11.5-14.5); WHITE BLOOD COUNT 3.4 x10^3/uL (4.0-11.0)
[2021-09-10 12:58] LABS: CALCIUM 9.1 mg/dL (8.5-10.1); CREATININE 0.9 mg/dL (0.6-1.0); GFR 61.9; POTASSIUM 4.2 mmol/L (3.5-5.1)
[2021-09-10 13:05] LABS: ALBUMIN/GLOBULIN RATIO 1.1 (1.0-1.7); TOTAL BILIRUBIN 0.5 mg/dL (0.2-1.0); TOTAL PROTEIN 7.5 g/dL (6.4-8.2)
== END ==
LOC: ONCLAB 12:29
PROVIDERS: ATTEND Physician Assistant
DX: C50.312 Malignant neoplasm of lower-inner quadrant of left female breast (principal)
CPT/HCPCS: 36415; 80053; 85025

== ENCOUNTER → 2021-09-25 | Outpatient (CLI) | payer MEDICARE, OTHER ==
[2021-04-09 11:05] VITALS: BP 112/72
[2021-09-25 13:08] LABS: BASO % 1 % (0-3); EOS % 1 % (0-3); HEMATOCRIT 37.4 % (36.0-47.0); LYMPH % 37 % (24-48); MEAN CORPUSCULAR HEMOGLOBIN 34 pg (25-35); MEAN CORPUSCULAR HGB CONC 35 g/dL (31-37); MEAN CORPUSCULAR VOLUME 97 fL (79-100); MONO # 0.2 x10^3/uL (0.0-1.1); MONO % 8 % (0-9); NEUT # 1.5 x10^3/uL (1.8-7.7); NEUT % 53 % (31-73); PLATELET COUNT 256 x10^3/uL (140-400); RED BLOOD COUNT 3.85 x10^6/uL (3.50-5.40); RED CELL DISTRIBUTION WIDTH 14.6 % (11.5-14.5); WHITE BLOOD COUNT 2.8 x10^3/uL (4.0-11.0)
[2021-09-25 13:14] LABS: CALCIUM 9.4 mg/dL (8.5-10.1); CREATININE 0.9 mg/dL (0.6-1.0); GFR 61.9; POTASSIUM 4.5 mmol/L (3.5-5.1)
[2021-09-25 13:21] LABS: ALBUMIN 3.8 g/dL (3.4-5.0); ALBUMIN/GLOBULIN RATIO 1.2 (1.0-1.7); TOTAL BILIRUBIN 0.6 mg/dL (0.2-1.0); TOTAL PROTEIN 6.9 g/dL (6.4-8.2)
== END ==
LOC: ONCLAB 12:29
PROVIDERS: ATTEND Physician Assistant
DX: C50.312 Malignant neoplasm of lower-inner quadrant of left female breast (principal)
CPT/HCPCS: 36415; 80053; 83615; 85025

== ENCOUNTER → 2021-09-27 | Outpatient (CLI) | payer MEDICARE, OTHER ==
[2021-04-09 11:05] VITALS: BP 112/72
--- NOTE | 2021-09-27 16:55 | RAD ---
EXAM: Dual modality PET-CT Scan DATE: 09/27/2021 RADIOPHARMACEUTICAL: 12 mCi F-18 fluorodeoxyglucose (FDG) IV. CLINICAL HISTORY: Osseous metastatic disease of unknown primary. COMPARISON: 06/28/2021 TECHNIQUE: Approximately 45 minutes after tracer administration, routine, attenuation-corrected Posit oumou Emission Tomography (PET) images were obtained from the level of the base of the skull through th e level of the mid thighs. Tomographic reconstructions are reviewed in coronal, transaxial and sagitt al planes. Non-contrast CT imaging was performed for attenuation correction and localization purpose s only. These images do not constitute a diagnostic-quality CT examination and were not used to diag nose disease independently of the PET images. The blood glucose level was within acceptable limits at the time of FDG administration. *One or more of the following individualized dose reduction techniques were utilized for this examina tion: 1. Automated exposure control. 2. Adjustment of the mA and/or kV according to patient size. 3. Use of iterative reconstruction technique. FINDINGS: There is diffusely heterogeneous radiotracer activity throughout the vertebral column and b moira pelvis due to previously demonstrated osseous metastatic disease. For reference purposes, the max imum SUV associated with these lesions is approximately 4.0, decreased compared to a prior maximum KNOX V of 6.1. No abnormal radiotracer activity is seen within the soft tissues. There is expected tracer activity within the bowel and renal collecting system. There is physiologic activity involving the vo bruna cords. The CT portion of the exam demonstrates a stable biopsy clip with surrounding nodularity within the m edial left breast. The heart is normal in size. The aorta is normal in caliber. There are stable axil hong, mediastinal and hilar lymph nodes. There is no pneumothorax or pleural effusion. There is linea r atelectasis or scarring within the lingula. No hepatic lesion is seen. The gallbladder, pancreas, s pleen, adrenal glands and kidneys are unremarkable. There is no mesenteric or peritoneal lymphadenopa thy. There is no bowel obstruction. The uterus is absent. The urinary bladder is unremarkable. The visualized portions of the brain are unremarkable. There is no neck lymphadenopathy. There are de generative changes throughout the spine. There are extensive mixed lytic and sclerotic osseous metast ases. This includes a lytic lesion within the posterior left aspect of L4 which extends beyond the ce ntral canal cortex. No pathologic fracture is seen. There are a few previously demonstrated lytic les ions which are sclerotic on the current exam. For reference purposes, there is a 1.4 cm sclerotic les ion within the posterior right aspect of T11 which was lytic on the prior exam. IMPRESSION: 1. Slight decreased heterogeneous radiotracer activity associated with osseous metastases involving t he vertebral column and bony pelvis. There has been interval sclerosis of a few previously demonstrat ed lytic lesions. The combination of this finding favors slight interval therapy response. There is n o new pathologic fracture or new evidence of a primary malignancy. 2. Please refer to the above report for additional findings regarding the non-PET portion of the exam . Electronically signed by: Destiny Patiño MD (09/27/2021 4:53 PM) [id number]
== END ==
LOC: PETSC 16:00
PROVIDERS: ATTEND Physician Assistant
DX: C79.51 Secondary malignant neoplasm of bone (principal); C50.312 Malignant neoplasm of lower-inner quadrant of left female breast; R59.0 Localized enlarged lymph nodes
CPT/HCPCS: 78815; A9552

== ENCOUNTER → 2021-10-08 | Outpatient (CLI) | payer MEDICARE, OTHER ==
[2021-04-09 11:05] VITALS: BP 112/72
[2021-10-08 11:45] LABS: BASO % 1 % (0-3); EOS % 1 % (0-3); HEMATOCRIT 37.2 % (36.0-47.0); HEMOGLOBIN 12.6 g/dL (12.0-15.5); LYMPH # 0.9 x10^3/uL (1.0-4.8); LYMPH % 43 % (24-48); MEAN CORPUSCULAR HEMOGLOBIN 33 pg (25-35); MEAN CORPUSCULAR HGB CONC 34 g/dL (31-37); MEAN CORPUSCULAR VOLUME 98 fL (79-100); MONO # 0.3 x10^3/uL (0.0-1.1); MONO % 16 % (0-9); NEUT # 0.9 x10^3/uL (1.8-7.7); NEUT % 40 % (31-73); PLATELET COUNT 215 x10^3/uL (140-400); RED BLOOD COUNT 3.78 x10^6/uL (3.50-5.40); WHITE BLOOD COUNT 2.2 x10^3/uL (4.0-11.0)
[2021-10-08 11:58] LABS: CALCIUM 8.8 mg/dL (8.5-10.1); CREATININE 0.7 mg/dL (0.6-1.0); GFR 82.7; POTASSIUM 4.5 mmol/L (3.5-5.1)
[2021-10-08 12:04] LABS: ALBUMIN 3.6 g/dL (3.4-5.0); ALBUMIN/GLOBULIN RATIO 1.1 (1.0-1.7); TOTAL BILIRUBIN 0.5 mg/dL (0.2-1.0); TOTAL PROTEIN 6.8 g/dL (6.4-8.2)
[2021-10-08 12:47] LABS: % BASOS 1 % (0-3); % LYMPHS 36 % (24-48); % MONOS 20 % (0-10); % SEGS 43 % (35-66)
[2021-10-08 12:49] LABS: ANISOCYTOSIS SLIGHT; PLT ESTIMATE ADEQUATE (ADEQUATE)
== END ==
LOC: ONCLAB 11:29
PROVIDERS: ATTEND Physician Assistant
DX: C50.312 Malignant neoplasm of lower-inner quadrant of left female breast (principal)
CPT/HCPCS: 36415; 80053; 83615; 85007; 85025

== ENCOUNTER → 2021-10-16 | Outpatient (CLI) | payer MEDICARE, OTHER ==
[2021-04-09 11:05] VITALS: BP 112/72
[2021-10-16 11:41] LABS: BASO % 1 % (0-3); EOS % 1 % (0-3); HEMATOCRIT 40.1 % (36.0-47.0); HEMOGLOBIN 13.3 g/dL (12.0-15.5); LYMPH # 1.6 x10^3/uL (1.0-4.8); LYMPH % 36 % (24-48); MEAN CORPUSCULAR HEMOGLOBIN 33 pg (25-35); MEAN CORPUSCULAR HGB CONC 33 g/dL (31-37); MEAN CORPUSCULAR VOLUME 99 fL (79-100); MONO # 0.8 x10^3/uL (0.0-1.1); MONO % 17 % (0-9); NEUT # 2.1 x10^3/uL (1.8-7.7); NEUT % 46 % (31-73); PLATELET COUNT 235 x10^3/uL (140-400); RED BLOOD COUNT 4.07 x10^6/uL (3.50-5.40); RED CELL DISTRIBUTION WIDTH 14.9 % (11.5-14.5); WHITE BLOOD COUNT 4.5 x10^3/uL (4.0-11.0)
[2021-10-16 11:48] LABS: CALCIUM 8.8 mg/dL (8.5-10.1); CREATININE 0.7 mg/dL (0.6-1.0); GFR 82.7; POTASSIUM 4.6 mmol/L (3.5-5.1)
[2021-10-16 11:54] LABS: ALBUMIN 3.8 g/dL (3.4-5.0); ALBUMIN/GLOBULIN RATIO 1.2 (1.0-1.7); TOTAL BILIRUBIN 0.5 mg/dL (0.2-1.0); TOTAL PROTEIN 7.1 g/dL (6.4-8.2)
== END ==
LOC: ONCLAB 11:21
PROVIDERS: ATTEND Internal Medicine Hematology & Oncology
DX: C50.312 Malignant neoplasm of lower-inner quadrant of left female breast (principal)
CPT/HCPCS: 36415; 80053; 85025

== ENCOUNTER → 2021-10-29 | Outpatient (CLI) | payer MEDICARE, OTHER ==
[2021-04-09 11:05] VITALS: BP 112/72
[2021-10-29 14:17] LABS: BASO % 1 % (0-3); EOS # 0.1 x10^3/uL (0.0-0.7); EOS % 2 % (0-3); HEMATOCRIT 38.1 % (36.0-47.0); HEMOGLOBIN 12.6 g/dL (12.0-15.5); LYMPH % 35 % (24-48); MEAN CORPUSCULAR HEMOGLOBIN 33 pg (25-35); MEAN CORPUSCULAR HGB CONC 33 g/dL (31-37); MEAN CORPUSCULAR VOLUME 99 fL (79-100); MONO # 0.2 x10^3/uL (0.0-1.1); MONO % 6 % (0-9); NEUT # 1.6 x10^3/uL (1.8-7.7); NEUT % 56 % (31-73); PLATELET COUNT 269 x10^3/uL (140-400); RED BLOOD COUNT 3.85 x10^6/uL (3.50-5.40); WHITE BLOOD COUNT 2.9 x10^3/uL (4.0-11.0)
[2021-10-29 14:36] LABS: CALCIUM 8.4 mg/dL (8.5-10.1); CREATININE 0.8 mg/dL (0.6-1.0); GFR 70.9; POTASSIUM 4.2 mmol/L (3.5-5.1)
[2021-10-29 14:41] LABS: ALBUMIN 3.5 g/dL (3.4-5.0); ALBUMIN/GLOBULIN RATIO 0.9 (1.0-1.7); TOTAL BILIRUBIN 0.3 mg/dL (0.2-1.0); TOTAL PROTEIN 7.2 g/dL (6.4-8.2)
== END ==
LOC: ONCLAB 13:54
PROVIDERS: ATTEND Physician Assistant
DX: C79.51 Secondary malignant neoplasm of bone (principal); C50.312 Malignant neoplasm of lower-inner quadrant of left female breast
CPT/HCPCS: 36415; 80053; 85025

== ENCOUNTER → 2021-11-05 | Outpatient (CLI) | payer MEDICARE, OTHER ==
[2021-04-09 11:05] VITALS: BP 112/72
[2021-11-05 13:04] LABS: BASO % 1 % (0-3); EOS % 2 % (0-3); HEMATOCRIT 37.9 % (36.0-47.0); HEMOGLOBIN 12.8 g/dL (12.0-15.5); LYMPH # 1.2 x10^3/uL (1.0-4.8); LYMPH % 49 % (24-48); MEAN CORPUSCULAR HEMOGLOBIN 33 pg (25-35); MEAN CORPUSCULAR HGB CONC 34 g/dL (31-37); MEAN CORPUSCULAR VOLUME 98 fL (79-100); MONO # 0.3 x10^3/uL (0.0-1.1); MONO % 13 % (0-9); NEUT # 0.9 x10^3/uL (1.8-7.7); NEUT % 36 % (31-73); PLATELET COUNT 163 x10^3/uL (140-400); RED BLOOD COUNT 3.86 x10^6/uL (3.50-5.40); RED CELL DISTRIBUTION WIDTH 14.4 % (11.5-14.5); WHITE BLOOD COUNT 2.5 x10^3/uL (4.0-11.0)
[2021-11-05 13:29] LABS: CALCIUM 8.8 mg/dL (8.5-10.1); CREATININE 0.9 mg/dL (0.6-1.0); GFR 61.9; POTASSIUM 4.7 mmol/L (3.5-5.1)
[2021-11-05 13:35] LABS: ALBUMIN 3.5 g/dL (3.4-5.0); ALBUMIN/GLOBULIN RATIO 0.9 (1.0-1.7); TOTAL BILIRUBIN 0.5 mg/dL (0.2-1.0); TOTAL PROTEIN 7.2 g/dL (6.4-8.2)
[2021-11-05 14:38] LABS: % BANDS 5 % (0-9); % BASOS 1 % (0-3); % EOS 4 % (0-5); % LYMPHS 49 % (24-48); PLT ESTIMATE ADEQUATE (ADEQUATE)
[2021-11-05 14:40] LABS: % MONOS 10 % (0-10); % SEGS 31 % (35-66)
== END ==
LOC: ONCLAB 12:51
PROVIDERS: ATTEND Physician Assistant
DX: C50.312 Malignant neoplasm of lower-inner quadrant of left female breast (principal); C79.51 Secondary malignant neoplasm of bone
CPT/HCPCS: 36415; 80053; 85007; 85025

== ENCOUNTER → 2021-11-20 | Outpatient (CLI) | payer MEDICARE, OTHER ==
[2021-04-09 11:05] VITALS: BP 112/72
[2021-11-20 12:31] LABS: BASO % 1 % (0-3); EOS % 1 % (0-3); HEMATOCRIT 37.7 % (36.0-47.0); LYMPH # 1.4 x10^3/uL (1.0-4.8); LYMPH % 34 % (24-48); MEAN CORPUSCULAR HEMOGLOBIN 33 pg (25-35); MEAN CORPUSCULAR HGB CONC 34 g/dL (31-37); MEAN CORPUSCULAR VOLUME 97 fL (79-100); MONO # 0.7 x10^3/uL (0.0-1.1); MONO % 16 % (0-9); NEUT % 48 % (31-73); PLATELET COUNT 338 x10^3/uL (140-400); RED BLOOD COUNT 3.89 x10^6/uL (3.50-5.40); RED CELL DISTRIBUTION WIDTH 14.1 % (11.5-14.5); WHITE BLOOD COUNT 4.3 x10^3/uL (4.0-11.0)
[2021-11-20 12:43] LABS: CALCIUM 7.6 mg/dL (8.5-10.1); CREATININE 0.7 mg/dL (0.6-1.0); GFR 82.7; POTASSIUM 3.9 mmol/L (3.5-5.1)
[2021-11-20 12:49] LABS: ALBUMIN 3.4 g/dL (3.4-5.0); ALBUMIN/GLOBULIN RATIO 0.9 (1.0-1.7); TOTAL BILIRUBIN 0.4 mg/dL (0.2-1.0); TOTAL PROTEIN 7.2 g/dL (6.4-8.2)
== END ==
LOC: ONCLAB 12:19
PROVIDERS: ATTEND Internal Medicine Hematology & Oncology
DX: C50.312 Malignant neoplasm of lower-inner quadrant of left female breast (principal)
CPT/HCPCS: 36415; 80053; 85025

== ENCOUNTER → 2021-12-03 | Outpatient (CLI) | payer MEDICARE, OTHER ==
[2021-04-09 11:05] VITALS: BP 112/72
[2021-12-03 11:05] LABS: BASO % 1 % (0-3); EOS # 0.1 x10^3/uL (0.0-0.7); EOS % 3 % (0-3); HEMATOCRIT 38.8 % (36.0-47.0); HEMOGLOBIN 12.9 g/dL (12.0-15.5); LYMPH # 1.1 x10^3/uL (1.0-4.8); LYMPH % 42 % (24-48); MEAN CORPUSCULAR HEMOGLOBIN 33 pg (25-35); MEAN CORPUSCULAR HGB CONC 33 g/dL (31-37); MEAN CORPUSCULAR VOLUME 100 fL (79-100); MONO # 0.1 x10^3/uL (0.0-1.1); MONO % 6 % (0-9); NEUT # 1.3 x10^3/uL (1.8-7.7); NEUT % 48 % (31-73); PLATELET COUNT 256 x10^3/uL (140-400); WHITE BLOOD COUNT 2.6 x10^3/uL (4.0-11.0)
[2021-12-03 11:25] LABS: CALCIUM 7.7 mg/dL (8.5-10.1); CREATININE 0.8 mg/dL (0.6-1.0); GFR 70.9; POTASSIUM 4.5 mmol/L (3.5-5.1)
[2021-12-03 11:31] LABS: ALBUMIN 3.3 g/dL (3.4-5.0); ALBUMIN/GLOBULIN RATIO 0.9 (1.0-1.7); TOTAL BILIRUBIN 0.4 mg/dL (0.2-1.0); TOTAL PROTEIN 7.1 g/dL (6.4-8.2)
== END ==
LOC: ONCLAB 10:43
PROVIDERS: ATTEND Internal Medicine Hematology & Oncology
DX: C50.312 Malignant neoplasm of lower-inner quadrant of left female breast (principal)
CPT/HCPCS: 36415; 80053; 85025

== ENCOUNTER → 2021-12-17 | Outpatient (CLI) | payer MEDICARE, OTHER ==
[2021-04-09 11:05] VITALS: BP 112/72
[2021-12-17 13:30] LABS: BASO % 1 % (0-3); EOS % 1 % (0-3); HEMOGLOBIN 12.6 g/dL (12.0-15.5); LYMPH # 1.3 x10^3/uL (1.0-4.8); LYMPH % 39 % (24-48); MEAN CORPUSCULAR HEMOGLOBIN 33 pg (25-35); MEAN CORPUSCULAR HGB CONC 34 g/dL (31-37); MEAN CORPUSCULAR VOLUME 98 fL (79-100); MONO # 0.4 x10^3/uL (0.0-1.1); MONO % 14 % (0-9); NEUT # 1.4 x10^3/uL (1.8-7.7); NEUT % 45 % (31-73); PLATELET COUNT 240 x10^3/uL (140-400); RED BLOOD COUNT 3.76 x10^6/uL (3.50-5.40); RED CELL DISTRIBUTION WIDTH 14.5 % (11.5-14.5); WHITE BLOOD COUNT 3.2 x10^3/uL (4.0-11.0)
[2021-12-17 13:41] LABS: CALCIUM 8.5 mg/dL (8.5-10.1); CREATININE 0.8 mg/dL (0.6-1.0); GFR 70.9; POTASSIUM 4.3 mmol/L (3.5-5.1)
[2021-12-17 13:47] LABS: ALBUMIN 3.5 g/dL (3.4-5.0); ALBUMIN/GLOBULIN RATIO 0.9 (1.0-1.7); TOTAL BILIRUBIN 0.4 mg/dL (0.2-1.0); TOTAL PROTEIN 7.4 g/dL (6.4-8.2)
== END ==
LOC: ONCLAB 13:14
PROVIDERS: ATTEND Internal Medicine Hematology & Oncology
DX: C50.312 Malignant neoplasm of lower-inner quadrant of left female breast (principal)
CPT/HCPCS: 36415; 80053; 85025

== ENCOUNTER → 2021-12-24 | Outpatient (CLI) | payer MEDICARE, OTHER ==
[2021-04-09 11:05] VITALS: BP 112/72
[2021-12-24 14:02] LABS: BASO % 1 % (0-3); EOS % 1 % (0-3); HEMATOCRIT 38.8 % (36.0-47.0); HEMOGLOBIN 13.3 g/dL (12.0-15.5); LYMPH # 1.6 x10^3/uL (1.0-4.8); LYMPH % 32 % (24-48); MEAN CORPUSCULAR HEMOGLOBIN 34 pg (25-35); MEAN CORPUSCULAR HGB CONC 34 g/dL (31-37); MEAN CORPUSCULAR VOLUME 99 fL (79-100); MONO # 0.8 x10^3/uL (0.0-1.1); MONO % 16 % (0-9); NEUT # 2.5 x10^3/uL (1.8-7.7); NEUT % 50 % (31-73); PLATELET COUNT 228 x10^3/uL (140-400); RED BLOOD COUNT 3.93 x10^6/uL (3.50-5.40); RED CELL DISTRIBUTION WIDTH 15.1 % (11.5-14.5)
== END ==
LOC: ONCLAB 13:30
PROVIDERS: ATTEND Internal Medicine Hematology & Oncology
DX: C50.312 Malignant neoplasm of lower-inner quadrant of left female breast (principal); D70.1 Agranulocytosis secondary to cancer chemotherapy
CPT/HCPCS: 36415; 85025

== ENCOUNTER → 2021-12-25 | Outpatient (CLI) | payer MEDICARE, OTHER ==
[2021-04-09 11:05] VITALS: BP 112/72
[~2021-12-25] MED LIST changes: +CONTRAST GIVEN. MC PRN; +IOHEXOL 240 MG/ML 50ML VIAL. PO ONE; +IOHEXOL 300 MG/ML 100ML VIAL. IV ONE
--- NOTE | 2021-12-25 14:49 | RAD ---
EXAM: Chest, abdomen and pelvis CT with intravenous contrast. HISTORY: Metastatic breast cancer. TECHNIQUE: Computed tomographic images of the chest, abdomen and pelvis were obtained following the a dministration of intravenous contrast. Multiplanar reformatting was performed. *One or more of the following individualized dose reduction techniques were utilized for this examina tion: 1. Automated exposure control. 2. Adjustment of the mA and/or kV according to patient size. 3. Use of iterative reconstruction technique. COMPARISON: PET/CT dated 06/28/2021. FINDINGS: Chest: There is a biopsy clip with adjacent nodule measuring approximately 1.3 cm within th e inferior medial posterior left breast. This is stable in appearance. There is no pathologically enl arged axillary lymph node. The heart is normal in size. There is coronary artery calcification. There is no mediastinal or hilar lymphadenopathy. There is no pneumothorax or pleural effusion. There is s uspected pleural parenchymal scarring involving the lingula. There is right basilar atelectasis. Ther e is no suspicious pulmonary nodule. There are predominantly sclerotic metastases throughout the vert ebral column, the largest of which is seen involving the right anterior aspect of T10. There is no ev idence of an acute pathologic fracture. Abdomen and pelvis: No hepatic lesion is seen. There is focal wall thickening involving the gallbladd er wall. This can be seen with focal adenomyomatosis. The pancreas, spleen, adrenal glands and left k idney are unremarkable. The right kidney is slightly under rotated, an incidental finding. There is n o bowel obstruction. There is no abnormal bowel wall thickening. There is a small partially calcified nodule within the left peritoneum likely due to fat necrosis. The bladder is nearly empty. The uteru s is absent. There is aortobiiliac atherosclerosis. There is a tiny fat-containing superior umbilical hernia. There are predominantly sclerotic metastases throughout the vertebral column and bony pelvis . There is also a large lytic lesion within the left posterior aspect of L4 which extends to the left pedicle and left lateral aspect of the central canal. There is absent cortex along the left anterior and lateral vertebral body and pedicle at this level. No pathologic fracture is seen. IMPRESSION: 1. Diffuse osseous metastatic disease. The majority of the metastases are sclerotic. There is a super imposed lytic metastasis within the left posterior aspect of L4 which involves the cortex and extends to the left aspect of the central canal. This is not significantly changed compared to the prior PET /CT. No pathologic fracture is seen. The overall number and size of metastases is not significantly c hanged. 2. Stable spiculated nodule and biopsy clip within the inferior medial left breast. 3. Suspected focal adenomyomatosis involving the gallbladder. This can be better assessed with a gall bladder sonogram. 4. No evidence of hepatic or pulmonary metastatic disease. Electronically signed by: Destiny Patiño MD (12/25/2021 2:47 PM) [id number]
== END ==
LOC: CT 10:03
PROVIDERS: ATTEND Internal Medicine Hematology & Oncology
DX: C79.51 Secondary malignant neoplasm of bone (principal); C50.312 Malignant neoplasm of lower-inner quadrant of left female breast; N63.20 Unspecified lump in the left breast, unspecified quadrant; I25.10 Atherosclerotic heart disease of native coronary artery without angina pectoris; J98.11 Atelectasis; K82.8 Other specified diseases of gallbladder; K43.9 Ventral hernia without obstruction or gangrene; I70.0 Atherosclerosis of aorta; Z90.710 Acquired absence of both cervix and uterus
CPT/HCPCS: 71260; 74177; Q9966; Q9967

== ENCOUNTER → 2021-12-31 | Outpatient (CLI) | payer MEDICARE, OTHER ==
[2021-04-09 11:05] VITALS: BP 112/72
[~2021-12-31] MED LIST changes: -CONTRAST GIVEN. MC PRN; -IOHEXOL 240 MG/ML 50ML VIAL. PO ONE; -IOHEXOL 300 MG/ML 100ML VIAL. IV ONE
[2021-12-31 13:57] LABS: BASO % 1 % (0-3); EOS # 0.1 x10^3/uL (0.0-0.7); EOS % 2 % (0-3); HEMATOCRIT 36.3 % (36.0-47.0); HEMOGLOBIN 12.2 g/dL (12.0-15.5); LYMPH # 1.1 x10^3/uL (1.0-4.8); LYMPH % 36 % (24-48); MEAN CORPUSCULAR HEMOGLOBIN 33 pg (25-35); MEAN CORPUSCULAR HGB CONC 34 g/dL (31-37); MEAN CORPUSCULAR VOLUME 99 fL (79-100); MONO # 0.2 x10^3/uL (0.0-1.1); MONO % 6 % (0-9); NEUT # 1.7 x10^3/uL (1.8-7.7); NEUT % 55 % (31-73); PLATELET COUNT 239 x10^3/uL (140-400); RED BLOOD COUNT 3.66 x10^6/uL (3.50-5.40); RED CELL DISTRIBUTION WIDTH 15.1 % (11.5-14.5)
[2021-12-31 14:06] LABS: CALCIUM 7.7 mg/dL (8.5-10.1); CREATININE 0.8 mg/dL (0.6-1.0); GFR 70.9; POTASSIUM 4.3 mmol/L (3.5-5.1)
[2021-12-31 14:10] LABS: ALBUMIN 3.6 g/dL (3.4-5.0); ALBUMIN/GLOBULIN RATIO 1.1 (1.0-1.7); TOTAL BILIRUBIN 0.4 mg/dL (0.2-1.0)
== END ==
LOC: ONCLAB 13:28
PROVIDERS: ATTEND Internal Medicine Hematology & Oncology
DX: C50.312 Malignant neoplasm of lower-inner quadrant of left female breast (principal); D70.1 Agranulocytosis secondary to cancer chemotherapy
CPT/HCPCS: 36415; 80053; 85025

== ENCOUNTER → 2022-01-07 | Outpatient (CLI) | payer MEDICARE, OTHER ==
[2021-04-09 11:05] VITALS: BP 112/72
[2022-01-07 13:26] LABS: CALCIUM 8.2 mg/dL (8.5-10.1); GFR 54.8; POTASSIUM 3.9 mmol/L (3.5-5.1)
[2022-01-07 13:31] LABS: ALBUMIN 3.6 g/dL (3.4-5.0); TOTAL BILIRUBIN 0.5 mg/dL (0.2-1.0); TOTAL PROTEIN 7.2 g/dL (6.4-8.2)
== END ==
LOC: ONCLAB 12:53
PROVIDERS: ATTEND Internal Medicine Hematology & Oncology
DX: C79.51 Secondary malignant neoplasm of bone (principal)
CPT/HCPCS: 36415; 80053

== ENCOUNTER → 2022-01-07 | Outpatient (CLI) | payer MEDICARE, OTHER ==
[2021-04-09 11:05] VITALS: BP 112/72
[~2022-01-07] MED LIST changes: +GADOTERATE 7.5 MMOL/15ML VIAL. IVP ONE
--- NOTE | 2022-01-07 14:16 | RAD ---
MRI LUMBAR SPINE WITHOUT AND WITH IV CONTRAST Date: 01/07/2022 10:32 AM Indication: LUMBAR PAIN. BONE METASTASIS, BREAST CANCER Comparison: CT 12/25/2021. MRI 02/20/2021. Technique: Multi-planar multi-weighted magnetic resonance imaging of the lumbar spine was performed w ith and without intravenous contrast using the standard lumbar spine protocol. [address] was administered intravenously during the examination. FINDINGS: Multiple enhancing lesions throughout the visualized osseous structures. No epidural spread of tumor. 3 mm retrolisthesis at L3-4. 4 mm anterolisthesis at L4-5. Trace anterolisthesis at L5-S1. No acute f racture. Moderate multilevel degenerative disc desiccation and disc height loss. The conus terminates at a normal level. No abnormal signal is seen within the visualized distal spina l cord. No clumping of intrathecal nerve roots. No soft tissue abnormality in the visualized abdomen or pelvis. T12-L1: No disc bulge. No facet arthropathy. No significant spinal stenosis or neural foraminal narro wing. L1-L2: No disc bulge. No facet arthropathy. No significant spinal stenosis or neural foraminal narrow ing. L2-L3: Disc bulge. Mild facet arthropathy. Mild spinal stenosis and lateral recess narrowing. Mild bi lateral neural foraminal narrowing. L3-L4: Disc bulge. Moderate facet arthropathy. Ligamentum flavum thickening. Moderate spinal stenosis . Moderate left and mild right lateral recess narrowing. Moderate to severe bilateral neural foramina l narrowing. L4-L5: Disc bulge. Severe facet arthropathy. Ligamentum flavum thickening. Mild spinal stenosis and l ateral recess narrowing. Mild to moderate bilateral neural foraminal narrowing. L5-S1: Disc bulge. Severe facet arthropathy. No significant spinal stenosis or neural foraminal narro wing. IMPRESSION: 1. Diffuse osseous metastatic disease. No pathologic fractures. No epidural spread of tumor. 2. Lumbar spondylosis, worst at L3-4 with moderate spinal canal stenosis and moderate to severe neuro foraminal narrowing. Electronically signed by: Tony Rawls MD (01/07/2022 2:14 PM) [id number]
--- NOTE | 2022-01-07 16:59 | RAD ---
US ABDOMEN LIMITED History: Breast cancer. Low back pain. Nausea. Suspected focal adenomyomatosis of the gallbladder. Comparison: CT 12/25/2021 Technique: Sonographic examination of the right upper quadrant of the abdomen. Findings: Pancreas: Visualized portions are unremarkable. Liver: The liver measures 17.4 cm. Liver echotexture is normal. No focal hepatic lesions. Hepatopet al flow in the portal vein. Gallbladder: No gallstones, wall thickening or pericholecystic fluid. No ring down artifact in the wa ll to suggest adenomyomatosis. Bile ducts: The common duct measures 6 mm. Right kidney: 10.7 cm length. No focal lesion, calculi or hydronephrosis. Aorta/IVC: Visualized portions are unremarkable. Other: No ascites. Impression: 1. No significant gallbladder abnormality identified. Electronically signed by: Matt Lerma MD (01/07/2022 4:57 PM) [id number]
== END ==
LOC: MRI 09:55
PROVIDERS: ATTEND Physician Assistant
DX: C79.51 Secondary malignant neoplasm of bone (principal); C50.312 Malignant neoplasm of lower-inner quadrant of left female breast; M47.816 Spondylosis without myelopathy or radiculopathy, lumbar region; M48.8X7 Other specified spondylopathies, lumbosacral region; M51.27 Other intervertebral disc displacement, lumbosacral region; M48.061 Spinal stenosis, lumbar region without neurogenic claudication; M43.16 Spondylolisthesis, lumbar region; M51.37 Other intervertebral disc degeneration, lumbosacral region
CPT/HCPCS: 72158; 76705; A9575

== ENCOUNTER → 2022-01-14 | Outpatient (CLI) | payer MEDICARE, OTHER ==
[2021-04-09 11:05] VITALS: BP 112/72
[~2022-01-14] MED LIST changes: -GADOTERATE 7.5 MMOL/15ML VIAL. IVP ONE
[2022-01-14 12:51] LABS: BASO % 1 % (0-3); EOS % 1 % (0-3); HEMATOCRIT 36.8 % (36.0-47.0); HEMOGLOBIN 12.2 g/dL (12.0-15.5); LYMPH # 0.9 x10^3/uL (1.0-4.8); LYMPH % 28 % (24-48); MEAN CORPUSCULAR HEMOGLOBIN 33 pg (25-35); MEAN CORPUSCULAR HGB CONC 33 g/dL (31-37); MEAN CORPUSCULAR VOLUME 99 fL (79-100); MONO # 0.2 x10^3/uL (0.0-1.1); MONO % 7 % (0-9); NEUT # 2.1 x10^3/uL (1.8-7.7); NEUT % 64 % (31-73); PLATELET COUNT 178 x10^3/uL (140-400); RED CELL DISTRIBUTION WIDTH 15.2 % (11.5-14.5); WHITE BLOOD COUNT 3.4 x10^3/uL (4.0-11.0)
[2022-01-14 12:58] LABS: CALCIUM 9.1 mg/dL (8.5-10.1); CREATININE 0.9 mg/dL (0.6-1.0); GFR 61.9; POTASSIUM 4.3 mmol/L (3.5-5.1)
[2022-01-14 13:03] LABS: ALBUMIN 3.9 g/dL (3.4-5.0); ALBUMIN/GLOBULIN RATIO 1.1 (1.0-1.7); TOTAL BILIRUBIN 0.5 mg/dL (0.2-1.0); TOTAL PROTEIN 7.3 g/dL (6.4-8.2)
== END ==
LOC: ONCLAB 12:27
PROVIDERS: ATTEND Internal Medicine Hematology & Oncology
DX: C79.51 Secondary malignant neoplasm of bone (principal)
CPT/HCPCS: 36415; 80053; 85025

== ENCOUNTER → 2022-01-21 | Outpatient (CLI) | payer MEDICARE, OTHER ==
[2021-04-09 11:05] VITALS: BP 112/72
[2022-01-21 14:01] LABS: BASO % 1 % (0-3); EOS % 2 % (0-3); HEMATOCRIT 34.8 % (36.0-47.0); HEMOGLOBIN 11.7 g/dL (12.0-15.5); LYMPH # 1.1 x10^3/uL (1.0-4.8); LYMPH % 44 % (24-48); MEAN CORPUSCULAR HEMOGLOBIN 33 pg (25-35); MEAN CORPUSCULAR HGB CONC 34 g/dL (31-37); MEAN CORPUSCULAR VOLUME 99 fL (79-100); MONO # 0.4 x10^3/uL (0.0-1.1); MONO % 14 % (0-9); NEUT % 40 % (31-73); PLATELET COUNT 176 x10^3/uL (140-400); RED BLOOD COUNT 3.52 x10^6/uL (3.50-5.40); RED CELL DISTRIBUTION WIDTH 15.3 % (11.5-14.5); WHITE BLOOD COUNT 2.6 x10^3/uL (4.0-11.0)
[2022-01-21 14:10] LABS: CALCIUM 8.2 mg/dL (8.5-10.1); CREATININE 0.8 mg/dL (0.6-1.0); GFR 70.9
[2022-01-21 14:18] LABS: ALBUMIN 3.4 g/dL (3.4-5.0); TOTAL BILIRUBIN 0.3 mg/dL (0.2-1.0); TOTAL PROTEIN 6.7 g/dL (6.4-8.2)
== END ==
LOC: ONCLAB 13:24
PROVIDERS: ATTEND Internal Medicine Hematology & Oncology
DX: C50.312 Malignant neoplasm of lower-inner quadrant of left female breast (principal)
CPT/HCPCS: 36415; 80053; 85025

== ENCOUNTER → 2022-02-04 | Outpatient (CLI) | payer MEDICARE, OTHER ==
[2021-04-09 11:05] VITALS: BP 112/72
[2022-02-04 13:52] LABS: BASO % 1 % (0-3); EOS % 1 % (0-3); HEMATOCRIT 35.6 % (36.0-47.0); HEMOGLOBIN 12.1 g/dL (12.0-15.5); LYMPH # 0.8 x10^3/uL (1.0-4.8); LYMPH % 30 % (24-48); MEAN CORPUSCULAR HEMOGLOBIN 34 pg (25-35); MEAN CORPUSCULAR HGB CONC 34 g/dL (31-37); MEAN CORPUSCULAR VOLUME 99 fL (79-100); MONO # 0.2 x10^3/uL (0.0-1.1); MONO % 6 % (0-9); NEUT # 1.6 x10^3/uL (1.8-7.7); NEUT % 62 % (31-73); PLATELET COUNT 261 x10^3/uL (140-400); RED CELL DISTRIBUTION WIDTH 15.1 % (11.5-14.5); WHITE BLOOD COUNT 2.6 x10^3/uL (4.0-11.0)
[2022-02-04 14:01] LABS: CALCIUM 8.4 mg/dL (8.5-10.1); CREATININE 0.9 mg/dL (0.6-1.0); GFR 61.9; POTASSIUM 4.5 mmol/L (3.5-5.1)
[2022-02-04 14:06] LABS: ALBUMIN 3.7 g/dL (3.4-5.0); ALBUMIN/GLOBULIN RATIO 1.1 (1.0-1.7); TOTAL BILIRUBIN 0.6 mg/dL (0.2-1.0); TOTAL PROTEIN 7.2 g/dL (6.4-8.2)
== END ==
LOC: ONCLAB 13:28
PROVIDERS: ATTEND Internal Medicine Hematology & Oncology
DX: C50.312 Malignant neoplasm of lower-inner quadrant of left female breast (principal)
CPT/HCPCS: 36415; 80053; 85025

== ENCOUNTER → 2022-02-18 | Outpatient (CLI) | payer MEDICARE, OTHER ==
[2021-04-09 11:05] VITALS: BP 112/72
[2022-02-18 14:20] LABS: BASO % 1 % (0-3); EOS % 1 % (0-3); HEMATOCRIT 36.1 % (36.0-47.0); HEMOGLOBIN 12.5 g/dL (12.0-15.5); LYMPH # 0.9 x10^3/uL (1.0-4.8); LYMPH % 41 % (24-48); MEAN CORPUSCULAR HEMOGLOBIN 34 pg (25-35); MEAN CORPUSCULAR HGB CONC 35 g/dL (31-37); MEAN CORPUSCULAR VOLUME 99 fL (79-100); MONO # 0.4 x10^3/uL (0.0-1.1); MONO % 16 % (0-9); NEUT # 0.9 x10^3/uL (1.8-7.7); NEUT % 41 % (31-73); PLATELET COUNT 221 x10^3/uL (140-400); RED BLOOD COUNT 3.65 x10^6/uL (3.50-5.40); RED CELL DISTRIBUTION WIDTH 15.3 % (11.5-14.5); WHITE BLOOD COUNT 2.3 x10^3/uL (4.0-11.0)
[2022-02-18 14:34] LABS: CALCIUM 8.8 mg/dL (8.5-10.1); CREATININE 0.9 mg/dL (0.6-1.0); GFR 61.9; POTASSIUM 3.8 mmol/L (3.5-5.1)
[2022-02-18 14:42] LABS: ALBUMIN 3.9 g/dL (3.4-5.0); ALBUMIN/GLOBULIN RATIO 1.1 (1.0-1.7); TOTAL BILIRUBIN 0.5 mg/dL (0.2-1.0); TOTAL PROTEIN 7.4 g/dL (6.4-8.2)
[2022-02-18 15:29] LABS: % EOS 2 % (0-5); % LYMPHS 46 % (24-48); % MONOS 14 % (0-10); % SEGS 38 % (35-66); PLT ESTIMATE ADEQUATE (ADEQUATE)
== END ==
LOC: ONCLAB 13:25
PROVIDERS: ATTEND Internal Medicine Hematology & Oncology
DX: C50.312 Malignant neoplasm of lower-inner quadrant of left female breast (principal); D70.2 Other drug-induced agranulocytosis
CPT/HCPCS: 36415; 80053; 85007; 85025

== ENCOUNTER → 2022-03-04 | Outpatient (CLI) | payer MEDICARE, OTHER ==
[2021-04-09 11:05] VITALS: BP 112/72
[2022-03-04 11:00] LABS: BASO % 1 % (0-3); EOS % 1 % (0-3); HEMATOCRIT 35.4 % (36.0-47.0); HEMOGLOBIN 12.2 g/dL (12.0-15.5); LYMPH % 38 % (24-48); MEAN CORPUSCULAR HEMOGLOBIN 34 pg (25-35); MEAN CORPUSCULAR HGB CONC 34 g/dL (31-37); MEAN CORPUSCULAR VOLUME 100 fL (79-100); MONO # 0.2 x10^3/uL (0.0-1.1); MONO % 6 % (0-9); NEUT # 1.4 x10^3/uL (1.8-7.7); NEUT % 54 % (31-73); PLATELET COUNT 258 x10^3/uL (140-400); RED BLOOD COUNT 3.56 x10^6/uL (3.50-5.40); RED CELL DISTRIBUTION WIDTH 15.2 % (11.5-14.5); WHITE BLOOD COUNT 2.6 x10^3/uL (4.0-11.0)
[2022-03-04 11:01] LABS: CALCIUM 8.9 mg/dL (8.5-10.1); CREATININE 0.9 mg/dL (0.6-1.0); GFR 61.9; POTASSIUM 4.1 mmol/L (3.5-5.1)
[2022-03-04 11:07] LABS: ALBUMIN 3.6 g/dL (3.4-5.0); TOTAL BILIRUBIN 0.7 mg/dL (0.2-1.0); TOTAL PROTEIN 7.2 g/dL (6.4-8.2)
== END ==
LOC: ONCLAB 10:24
PROVIDERS: ATTEND Physician Assistant
DX: C50.312 Malignant neoplasm of lower-inner quadrant of left female breast (principal)
CPT/HCPCS: 36415; 80053; 85025

== ENCOUNTER → 2022-03-18 | Outpatient (CLI) | payer MEDICARE, OTHER ==
[2021-04-09 11:05] VITALS: BP 112/72
[2022-03-18 14:28] LABS: BASO % 0 % (0-3); EOS % 1 % (0-3); HEMATOCRIT 36.7 % (36.0-47.0); HEMOGLOBIN 12.6 g/dL (12.0-15.5); LYMPH # 0.9 x10^3/uL (1.0-4.8); LYMPH % 29 % (24-48); MEAN CORPUSCULAR HEMOGLOBIN 34 pg (25-35); MEAN CORPUSCULAR HGB CONC 34 g/dL (31-37); MEAN CORPUSCULAR VOLUME 100 fL (79-100); MONO # 0.4 x10^3/uL (0.0-1.1); MONO % 12 % (0-9); NEUT # 1.9 x10^3/uL (1.8-7.7); NEUT % 58 % (31-73); PLATELET COUNT 219 x10^3/uL (140-400); RED BLOOD COUNT 3.69 x10^6/uL (3.50-5.40); RED CELL DISTRIBUTION WIDTH 15.2 % (11.5-14.5); WHITE BLOOD COUNT 3.2 x10^3/uL (4.0-11.0)
[2022-03-18 14:38] LABS: CALCIUM 9.1 mg/dL (8.5-10.1); CREATININE 0.8 mg/dL (0.6-1.0); GFR 70.9; POTASSIUM 4.3 mmol/L (3.5-5.1)
[2022-03-18 14:44] LABS: ALBUMIN 3.8 g/dL (3.4-5.0); TOTAL BILIRUBIN 0.6 mg/dL (0.2-1.0); TOTAL PROTEIN 7.5 g/dL (6.4-8.2)
== END ==
LOC: ONCLAB 13:48
PROVIDERS: ATTEND Internal Medicine Hematology & Oncology
DX: C50.312 Malignant neoplasm of lower-inner quadrant of left female breast (principal)
CPT/HCPCS: 36415; 80053; 85025

== ENCOUNTER → 2022-03-31 | Outpatient (CLI) | payer MEDICARE, OTHER ==
[2021-04-09 11:05] VITALS: BP 112/72
[~2022-03-31] MED LIST changes: +CONTRAST GIVEN. MC PRN; +IOHEXOL 240 MG/ML 50ML VIAL. PO ONE; +IOHEXOL 350 MG/ML 100 ML VIAL. IV ONE
--- NOTE | 2022-03-31 16:46 | RAD ---
CT scan of the chest, abdomen and pelvis with contrast 03/31/2022 CLINICAL HISTORY: Metastatic breast cancer. TECHNIQUE: After the oral and intravenous administration of contrast, contiguous, 0.625 mm axial sect ions were obtained through the chest, abdomen and pelvis. 5 mm axial, sagittal and coronal reconstruc kanchan images were obtained. 75 cc of Omnipaque 350 were administered intravenously during this examinat ion. One or more of the following individualized dose reduction techniques were utilized for this study: 1. Automated exposure control. 2. Adjustment of the mA and/or kV according to patient size. 3. Use of iterative reconstruction technique. FINDINGS: Comparison study is dated 12/25/2021. Atherosclerotic calcification of the thoracic aorta and its branches is noted. The thoracic aorta tap ers normally. The heart is mildly enlarged. No hilar or mediastinal lymphadenopathy is seen. No axill felix lymphadenopathy is noted. Dependent subsegmental atelectasis is seen involving both lower lobes. Segmental atelectasis is seen involving the lingula and medial right middle lobe. No pulmonary mass or concerning pulmonary nodule is seen. No area of consolidation is noted. No pneumothorax or pleural effusion is seen. The liver parenchyma has a decreased attenuation consistent with fatty infiltration. The spleen, panc reas, adrenal glands and kidneys are within normal limits. Atherosclerotic calcification of the abdominal aorta is seen. The abdominal aorta tapers normally. Th e gallbladder is well-distended. No free fluid or free air is seen within the abdomen. There is no ev idence of bowel obstruction. No retroperitoneal lymphadenopathy is seen. Images through the pelvis demonstrate the urinary bladder to be contracted. Calcifications are seen w ithin the pelvis consistent with phleboliths. Patient appears to be post hysterectomy. No adnexal mas s is seen. No pelvic or inguinal lymphadenopathy is noted. Degenerative changes are again seen throughout the thoracic and lumbar spine along with both hips. Mu ltiple predominantly sclerotic metastasis are seen throughout the thoracic and lumbar vertebral conrad s and the bony pelvis, unchanged. A 2.5 cm lytic metastasis is seen involving the L4 vertebral body, unchanged. A 1.6 cm lytic lesion is seen involving the right ilium, unchanged. IMPRESSION: Stable CT appearance of the bony metastatic disease involving the chest abdomen and pelvi s. No new metastasis is seen. Electronically signed by: Mynor Pineda MD (03/31/2022 4:44 PM) [id number]
== END ==
LOC: CT 12:45
PROVIDERS: ATTEND Internal Medicine Hematology & Oncology
DX: C79.89 Secondary malignant neoplasm of other specified sites (principal); C50.312 Malignant neoplasm of lower-inner quadrant of left female breast; I70.0 Atherosclerosis of aorta; I51.7 Cardiomegaly; J98.11 Atelectasis; M47.816 Spondylosis without myelopathy or radiculopathy, lumbar region; M47.814 Spondylosis without myelopathy or radiculopathy, thoracic region; M16.0 Bilateral primary osteoarthritis of hip
CPT/HCPCS: 71260; 74177; Q9966; Q9967